=== PATIENT | female | born 1940 | race Caucasian/White ===

== ENCOUNTER 2018-11-19 06:20 | Inpatient (IN) | payer MEDICARE, OTHER ==
[2018-11-19] MEDS ORDERED: Sodium Chloride 0.9% 10 ML Syringe FLUSH PRN (06:30)
[2018-11-19] MEDS ORDERED: Albuterol/Ipratropium 3.0-0.5 MG/3 ML Neb Soln NEB ONE (06:33)
[2018-11-19] MEDS ORDERED: methylPREDNISolone Sodium Succinate 125 MG/2 ML SDV IV ONE (06:33)
--- NOTE | 2018-11-19 06:53 | EDM.PDOC ---
<ShebaAugustine W - Last Filed: 11/19/18 07:01> ED HPI GENERAL MEDICAL PROBLEM - General Chief Complaint: Respiratory Problem Stated Complaint: Shortness of breath Time Seen by Provider: 11/19/18 06:25 Source of Information: Reports: Patient History Limitations: Reports: No Limitations - History of Present Illness INITIAL COMMENTS - FREE TEXT/NARRATIVE: Pt. presents to ER with complaints of trouble breathing. Pt. states that she has been ill for several days with cough, wheezing, and diarrhea. She states that she has been occasionally chilled but has not been checking her temp. Pt. states that she has an underlying history of COPD. Pt. PCP is Dr. Ford. She states that she has never been hospitalized for COPD, in fact, she doesn't think that she has had a nebulizer treatment until today. She currently takes Incruse and albuterol for her COPD. She states that she perviously took Advair. She still smokes. Onset Date: 11/18/18 Location: Reports: Chest, Generalized Associated Symptoms: Reports: Shortness of Breath - Related Data Allergies Allergy/AdvReac Type Severity Reaction Status Date / Time rosuvastatin calcium AdvReac Muscle Verified 11/19/18 06:43 [From Crestor] Weakness Home Meds: Home Meds Albuterol [Ventolin HFA] 1 puff INH Q4H PRN 09/01/15 [History] Calcium Carbonate/Vitamin D3 [Calcium 600 + Vit D 200] 1 tab PO BID 09/01/15 [ History] Fluticasone/Salmeterol [Advair 250-50 Diskus] 1 puff INH DAILY 09/01/15 [History ] Ibuprofen 2 tab PO Q6HR PRN 09/01/15 [History] Multivitamin with Minerals [Multiple Vitamin] 1 tab PO DAILY 09/01/15 [History] Simvastatin 1 tab PO DAILY 09/01/15 [History] Theophylline [Theophylline Anhydrous] 100 mg PO BID 09/01/15 [History] Topiramate 50 mg PO DAILY 09/01/15 [History] Past Medical History HEENT History: Reports: None Cardiovascular History: Reports: High Cholesterol, Other (See Below) Other Cardiovascular History: proxysmal supraventricular tachycardia Respiratory History: Reports: COPD, Other (See Below) Other Respiratory History: Chronic airway obstruction Gastrointestinal History: Reports: Other (See Below) Other Gastrointestinal History: Diverticulitis. Heme positive stool Musculoskeletal History: Reports: Other (See Below) Other Musculoskeletal History: knee injury Neurological History: Reports: Other (See Below) Other Neuro History: Essential tremor Psychiatric History: Reports: Depression Endocrine/Metabolic History: Reports: Osteoporosis, Other (See Below) Other Endocrine/Metabolic History: Weight loss Hematologic History: Reports: None Immunologic History: Reports: None Oncologic (Cancer) History: Reports: None Dermatologic History: Reports: Other (See Below) Other Dermatologic History: Alopecia - Past Surgical History Musculoskeletal Surgical History: ED ROS GENERAL - Review of Systems Review Of Systems: See Below Constitutional: Reports: Chills, Fatigue HEENT: Reports: No Symptoms Respiratory: Reports: Shortness of Breath, Wheezing Cardiovascular: Reports: No Symptoms. Denies: Chest Pain, Edema, Palpitations Endocrine: Reports: No Symptoms GI/Abdominal: Reports: Diarrhea, Nausea : Reports: No Symptoms Musculoskeletal: Reports: No Symptoms Skin: Reports: Change in Color (cyanosis around lips) Neurological: Reports: No Symptoms Psychiatric: Reports: No Symptoms Hematologic/Lymphatic: Reports: No Symptoms Immunologic: Reports: No Symptoms ED EXAM, GENERAL - Physical Exam Exam: See Below Exam Limited By: No Limitations General Appearance: Alert, WD/WN, No Apparent Distress Eye Exam: Bilateral Eye: EOMI, Normal Fundi, Normal Inspection, PERRL Throat/Mouth: Normal Inspection, Normal Lips, Normal Teeth, Normal Gums, Normal Oropharynx, Normal Voice, No Airway Compromise Head: Atraumatic, Normocephalic Neck: Normal Inspection, Supple Respiratory/Chest: No Respiratory Distress, Chest Non-Tender, Decreased Breath Sounds, Wheezing Cardiovascular: Normal Peripheral Pulses, Regular Rate, Rhythm, No Edema, No Murmur Peripheral Pulses: 3+: Radial (R) GI/Abdominal: Normal Bowel Sounds, Soft, Non-Tender, No Organomegaly, No Distention (Female) Exam: Deferred Rectal (Female) Exam: Deferred Back Exam: Normal Inspection, Full Range of Motion Extremities: Normal Inspection, Normal Range of Motion, Non-Tender, No Pedal Edema, Normal Capillary Refill Neurological: Alert, Oriented, CN II-XII Intact, Normal Cognition, Normal Reflexes, No Motor/Sensory Deficits, Other (tremor noted.) Skin Exam: Warm, Dry, Intact Course - Vital Signs Last Recorded V/S: Last Vital Signs Temp 36.9 C 11/19/18 06:20 Pulse 110 H 11/19/18 07:27 Resp 20 11/19/18 08:00 BP 181/122 H 11/19/18 08:00 Pulse Ox 88 L 11/19/18 08:00 - Orders/Labs/Meds Orders: Active Orders 24 hr Category Date Time Status EKG Documentation Completion [RC] STAT Care 11/19/18 07:02 Active Oxygen Therapy, ED [RC] ASDIRECTED Care 11/19/18 06:20 Active RT Aerosol Therapy [RC] ASDIRECTED Care 11/19/18 06:33 Active Chest PE [Ang Chest] [CT] Stat Exams 11/19/18 07:40 Ordered CULTURE BLOOD [BC] Stat Lab 11/19/18 06:34 Ordered CULTURE BLOOD [BC] Stat Lab 11/19/18 06:34 Ordered Sodium Chloride 0.9% [Saline Flush] Med 11/19/18 06:30 Active 10 ml FLUSH ASDIRECTED PRN Blood Culture x2 Reflex Set [OM.PC] Stat Oth 11/19/18 06:34 Ordered Peripheral IV Insertion Adult [OM.PC] Routine Oth 11/19/18 06:31 Ordered Medication Orders Sodium Chloride (Saline Flush) 10 ml FLUSH ASDIRECTED PRN PRN Reason: Keep Vein Open Labs: Laboratory Tests 11/19/18 11/19/18 11/19/18 Range/Units 06:43 06:43 06:43 WBC 6.3 (4.0-10.0) x10^3/uL RBC 4.52 (4.00-5.50) x10^6/uL Hgb 14.1 (12.0-16.0) g/dL Hct 41.6 (33.0-47.0) % MCV 92.0 (78.0-93.0) fL MCH 31.2 (26.0-32.0) pg MCHC 33.9 (32.0-36.0) g/dL RDW Coeff of Vazquez 12.7 (10.0-15.0) % Plt Count 219 (130-400) x10^3/uL Neut % (Auto) 68.8 (50.0-80.0) % Lymph % (Auto) 19.2 L (25.0-50.0) % [place] % (Auto) 10.7 (2.0-11.0) % Eos % (Auto) 1.0 (0.0-4.0) % Baso % (Auto) 0.3 (0.2-1.2) % PT 10.4 (10.0-12.8) SEC INR 0.9 L (2.0-3.5) D-Dimer, Quantitative (<=0.58) mg/LFEU POC ABG pH (7.35-7.45) POC ABG pCO2 (35-45) mmHG POC ABG pO2 (80-105) mmHG POC ABG HCO3 (22-26) mmol/L POC ABG Total CO2 (23-27) mmol/L POC ABG O2 Sat (95-98) % POC ABG Base Excess (-2-3) mmol/L POC FiO2 Sodium (136-145) mmol/L Potassium (3.5-5.1) mmol/L Chloride (98-107) mmol/L Carbon Dioxide (21-32) mmol/L Anion Gap (10-20) mmol/L BUN (7-18) mg/dL Creatinine (0.55-1.02) mg/dL Est Cr Clr Drug Dosing mL/min Estimated GFR (MDRD) Glucose (74-106) mg/dL Lactic Acid 1.3 (0.4-2.0) mmol/L Calcium (8.5-10.1) mg/dL Corrected Calcium (8.5-10.1) mg/dL Phosphorus (2.6-4.7) mg/dL Magnesium (1.8-2.4) mg/dL Total Bilirubin (0.2-1.0) mg/dL AST (15-37) U/L ALT (14-59) U/L Alkaline Phosphatase (46-116) U/L Troponin I (<=0.056) ng/mL C-Reactive Protein (<=0.9) mg/dL NT-Pro-B Natriuret Pep (<=450) pg/mL Total Protein (6.4-8.2) g/dL Albumin (3.4-5.0) g/dL Globulin Albumin/Globulin Ratio 11/19/18 11/19/18 11/19/18 Range/Units 06:43 06:43 06:43 WBC (4.0-10.0) x10^3/uL RBC (4.00-5.50) x10^6/uL Hgb (12.0-16.0) g/dL Hct (33.0-47.0) % MCV (78.0-93.0) fL MCH (26.0-32.0) pg MCHC (32.0-36.0) g/dL RDW Coeff of Vazquez (10.0-15.0) % Plt Count (130-400) x10^3/uL Neut % (Auto) (50.0-80.0) % Lymph % (Auto) (25.0-50.0) % [place] % (Auto) (2.0-11.0) % Eos % (Auto) (0.0-4.0) % Baso % (Auto) (0.2-1.2) % PT (10.0-12.8) SEC INR (2.0-3.5) D-Dimer, Quantitative 1.04 H (<=0.58) mg/LFEU POC ABG pH (7.35-7.45) POC ABG pCO2 (35-45) mmHG POC ABG pO2 (80-105) mmHG POC ABG HCO3 (22-26) mmol/L POC ABG Total CO2 (23-27) mmol/L POC ABG O2 Sat (95-98) % POC ABG Base Excess (-2-3) mmol/L POC FiO2 Sodium 137 (136-145) mmol/L Potassium 4.5 (3.5-5.1) mmol/L Chloride 101 (98-107) mmol/L Carbon Dioxide 27 (21-32) mmol/L Anion Gap 13.5 (10-20) mmol/L BUN 12 (7-18) mg/dL Creatinine 1.0 (0.55-1.02) mg/dL Est Cr Clr Drug Dosing 36.11 mL/min Estimated GFR (MDRD) 54 Glucose 86 (74-106) mg/dL Lactic Acid (0.4-2.0) mmol/L Calcium 8.6 (8.5-10.1) mg/dL Corrected Calcium 9.24 (8.5-10.1) mg/dL Phosphorus 3.8 (2.6-4.7) mg/dL Magnesium 1.7 L (1.8-2.4) mg/dL Total Bilirubin 0.6 (0.2-1.0) mg/dL AST 34 (15-37) U/L ALT 31 (14-59) U/L Alkaline Phosphatase 103 (46-116) U/L Troponin I 0.054 (<=0.056) ng/mL C-Reactive Protein 0.6 (<=0.9) mg/dL NT-Pro-B Natriuret Pep 6356 H (<=450) pg/mL Total Protein 6.8 (6.4-8.2) g/dL Albumin 3.2 L (3.4-5.0) g/dL Globulin 3.6 Albumin/Globulin Ratio 0.89 11/19/18 Range/Units 07:27 WBC (4.0-10.0) x10^3/uL RBC (4.00-5.50) x10^6/uL Hgb (12.0-16.0) g/dL Hct (33.0-47.0) % MCV (78.0-93.0) fL MCH (26.0-32.0) pg MCHC (32.0-36.0) g/dL RDW Coeff of Vazquez (10.0-15.0) % Plt Count (130-400) x10^3/uL Neut % (Auto) (50.0-80.0) % Lymph % (Auto) (25.0-50.0) % [place] % (Auto) (2.0-11.0) % Eos % (Auto) (0.0-4.0) % Baso % (Auto) (0.2-1.2) % PT (10.0-12.8) SEC INR (2.0-3.5) D-Dimer, Quantitative (<=0.58) mg/LFEU POC ABG pH 7.425 (7.35-7.45) POC ABG pCO2 39 (35-45) mmHG POC ABG pO2 69 L (80-105) mmHG POC ABG HCO3 26 (22-26) mmol/L POC ABG Total CO2 27 (23-27) mmol/L POC ABG O2 Sat 94 L (95-98) % POC ABG Base Excess 1 (-2-3) mmol/L POC FiO2 0.28 Sodium (136-145) mmol/L Potassium (3.5-5.1) mmol/L Chloride (98-107) mmol/L Carbon Dioxide (21-32) mmol/L Anion Gap (10-20) mmol/L BUN (7-18) mg/dL Creatinine (0.55-1.02) mg/dL Est Cr Clr Drug Dosing mL/min Estimated GFR (MDRD) Glucose (74-106) mg/dL Lactic Acid (0.4-2.0) mmol/L Calcium (8.5-10.1) mg/dL Corrected Calcium (8.5-10.1) mg/dL Phosphorus (2.6-4.7) mg/dL Magnesium (1.8-2.4) mg/dL Total Bilirubin (0.2-1.0) mg/dL AST (15-37) U/L ALT (14-59) U/L Alkaline Phosphatase (46-116) U/L Troponin I (<=0.056) ng/mL C-Reactive Protein (<=0.9) mg/dL NT-Pro-B Natriuret Pep (<=450) pg/mL Total Protein (6.4-8.2) g/dL Albumin (3.4-5.0) g/dL Globulin Albumin/Globulin Ratio Meds: Medications Generic Name Dose Route Start Last Admin Trade Name Freq PRN Reason Stop Dose Admin Sodium Chloride 10 ml 11/19/18 06:30 Saline Flush FLUSH ASDIRECTED PRN Keep Vein Open Discontinued Medications Generic Name Dose Route Start Last Admin Trade Name Freq PRN Reason Stop Dose Admin Albuterol/Ipratropium 3 ml 11/19/18 06:33 11/19/18 06:25 Duoneb 3.0-0.5 Mg/3 Ml NEB 11/19/18 06:34 3 ml ONETIME ONE Administration Iopamidol 100 ml 11/19/18 07:53 11/19/18 08:08 Isovue-300 (61%) IVPUSH 11/19/18 07:54 100 ml ONETIME ONE Administration Methylprednisolone Sodium Succinate 125 mg 11/19/18 06:33 11/19/18 06:56 Solu-Medrol IV 11/19/18 06:34 125 mg ONETIME ONE Administration Departure - Departure Disposition: Admitted As Inpatient 68 Clinical Impression: COPD with exacerbation - Discharge Information Forms: ED Department Discharge - My Orders Last 24 Hours: My Active Orders 11/19/18 07:40 Chest PE [Ang Chest] [CT] Stat - Assessment/Plan Last 24 Hours: My Active Orders 11/19/18 07:40 Chest PE [Ang Chest] [CT] Stat <Murphy Lopez M - Last Filed: 11/19/18 09:12> Course - Re-Assessments/Exams Free Text/Narrative Re-Assessment/Exam: 11/19/18 08:46 D-Dimer elevated. CTA chest ordered due to hypoxia, SOB. Negative for PE. No pneumonia. Departure - Departure Time of Disposition: 09:11 Condition: Fair ED Communication - ED Communication Date/Time Date: 11/19/18 Time Called: 08:45 - Discussed Case With (1) Discussed Case With (1): Admitting Provider (Reviewed case with Dr. Ford, patient's primary provider. She will admit to inpatient.) - Problem List Review Problem List Initiated/Reviewed/Updated: Yes - Assessment/Plan Assessment:: COPD exacerbation Plan: Patient to be admitted inpatient to Dr. Ford's services. Patient has been stable during our care in the ER.
[2018-11-19 07:17] LABS: ANION GAP 13.5 mmol/L (10-20)
--- NOTE | 2018-11-19 07:40 | CR ---
[id number] RAD/RAD Chest PA or AP 1V EXAM: SINGLE VIEW CHEST. INDICATION: SHORTNESS OF BREATH COMPARISON: CORRELATION IS MADE WITH THE CAT SCAN OF APRIL 03, 2018. FINDINGS: The lungs are clear but hyperaerated. The cardiomediastinal contour is prominent but stable. IMPRESSION: AIRWAY DISEASE. NO PNEUMONIA OR EDEMA. Jose Mendez MD 11/19/18 0739 Thank you for allowing us to participate in the care of your patient.
[2018-11-19] MEDS ORDERED: Iopamidol 612 MG/ML 100 ML Bottle IVPUSH ONE (07:53)
--- NOTE | 2018-11-19 08:40 | CT ---
[id number] CT/CTA Chest Exam: CTA Chest Clinical Data: ELEVATED D-DIMER. HYPOXIA COMPARISON: CORRELATION IS MADE WITH THE CAT SCAN OF APRIL 03, 2018. FINDINGS: There are no pulmonary emboli. There is evidence of centrilobular emphysema. There is bronchiectasis. There is no infiltrate or effusion. There are atheromatous changes. There is no mediastinal mass or adenopathy IMPRESSION: NO PULMONARY EMBOLI. Jose Mendez MD 11/19/18 0838 Thank you for allowing us to participate in the care of your patient.
[2018-11-19] MEDS ORDERED: Acetaminophen 325 MG Tab PO PRN (08:55)
[2018-11-19] MEDS: Lisinopril 5 MG Tab PO SCH (10:17)
[2018-11-19] MEDS: Albuterol/Ipratropium 3.0-0.5 MG/3 ML Neb Soln NEB SCH ×3 (10:17→19:32)
[2018-11-19] MEDS: Magnesium Oxide 400 MG Tab PO SCH (10:17)
[2018-11-19] MEDS: Azithromycin 250 MG Tab PO SCH (10:17)
[2018-11-19] MEDS ORDERED: Non-Formulary Medication 1 Each (Albuterol 1 PUFF) INH PRN (11:34)
[2018-11-19] MEDS ORDERED: guaiFENesin 600 MG Tab.ER PO PRN (11:36)
[2018-11-19] MEDS ORDERED: Albuterol 0.083% 2.5 MG/3 ML Neb Soln NEB PRN (11:48)
[2018-11-19] MEDS: Primidone 50 MG Tab PO SCH ×2 (12:26→19:33)
[2018-11-19] MEDS: Fluticasone-Salmeterol 113-14 MCG Powder Inhalant INH SCH ×2 (12:27→19:32)
[2018-11-19] MEDS: Megestrol 40 MG Tab PO SCH ×2 (12:27→19:33)
[2018-11-19] MEDS ORDERED: Sodium Chloride 0.9% 1,000 ML IV ONE (13:30)
[2018-11-19] MEDS: methylPREDNISolone Sodium Succinate 125 MG/2 ML SDV IVPUSH SCH ×2 (14:23→21:22)
--- NOTE | 2018-11-19 17:39 | HP ---
CHIEF COMPLAINT: Shortness of breath. HISTORY OF PRESENT ILLNESS: The patient is seen today. The patient is a 78- year-old female with known history of COPD, who presents into the emergency room, being quite short of breath. She has been having a cough for the past week. It was productive. No fever or chills. No chest pain, but she knows that she was having blueness around her lips as well as her fingers and she came into the emergency room. She was initially seen by RAZ Harris and then Murphy Lopez. She was given a DuoNeb treatment, given oxygen. Her sats initially were down to about 79, it was up to 85 with just 3 L, but then did improve to the low 90s after neb treatment. The patient has been feeling a little bit nauseated for the past few days. She has been only using her Advair once a day. She has been doing fairly well in the clinic with her COPD. To note, the patient had been on a fishing trip in October. She does see Neurology for her tremor and recently she had been tried on gabapentin, but that did not seem to make a difference, so she had stopped it. The patient is still smoking half a pack of cigarettes a day and does not desire any methods to help her stop smoking. Her accompanies her, offers no other concerns. To note, the patient does have a noted lung nodule by CT and had been seen by Pulmonology in [place]. She was to have been seen for recheck by Pulmonology last winter, but the patient did not keep that appointment nor did she have formal pulmonary function tests done. It was noted in the emergency room that her blood pressure is somewhat high and she commented in the clinic that it had been somewhat high recently. She has not been on any medications for blood pressure. MEDICATIONS: The patient is currently on, 1. Megace 40 mg 1 pill 3 times a day. 2. Primidone 50 mg 2 pills 3 times a day (not currently on Neurontin). 3. Xanax 0.25 mg 1 pill twice a day as needed for anxiety. 4. Advair 250/50 one puff twice a day (had been doing stable on that dose). 5. Zocor 20 mg 1 pill daily. 6. Incruse Ellipta 1 puff daily. 7. Albuterol 2 puffs every 4 hours as needed for cough (the patient has been out of this medication recently). 8. Multivitamin 1 pill daily. 9. Calcium with vitamin D 600/200 one pill twice a day. 10.Advil 400 mg every 6 hours as needed for pain. ALLERGIES: The patient is allergic to Crestor. PAST MEDICAL HISTORY: The patient has COPD. She has been noted to have a peak flow baseline at 250 noted in 2012. She had been on theophylline and had been tapered off her system because of problems with worsening tremor. She has hypercholesterolemia. She has had an essential tremor. She is seen by Neurology, has been on Topamax and Zoloft, Xanax actually seemed to help with her tremor in 06/2018, and she is on Mysoline for this. The patient is noted to have multiple lung nodules, first found on 11/28/2017 by low-dose CT in the middle lobe. The patient had a suspicious nodule noted and she needed to have a CT scan or PET scan. She need a 3-month followup CT. She also had severe emphysema present on 04/05/2018. CT showed scarring, previous 4 mm nodule density within bronchus, no longer seen. She is supposed to have a 12 month followup. The patient has had anxiety, started on Xanax in 06/2018. She has had chronic diarrhea in the past from medication related. She has had diverticulosis noted of her large intestine in 2000 by flexible sigmoidoscopy. She has had elevated liver function tests in the past. She had a hyperplastic colon polyp noted on 09/10/2015 and her next scope was to be done in 2 years. The patient has had a close maxillary fracture from a fall from 04/08/2018. She had alopecia. The patient has a history of PSVT. She had AV node ablation on 08/17/2011. She had a Cardiolite stress test in 04/2007, which was negative. She has had nicotine dependence. She is noted to have osteoporosis since 09/18/2016, previous osteopenia noted since 2010. VACCINATION: She has had pneumococcal 13 on 08/18/2015. She has had pneumococcal 23 on 05/03/2007. Tdap on 03/20/2011. Zostavax 06/14/2012. FAMILY MEDICAL HISTORY: Mother has had a stroke, had hearing loss. Father had a heart attack, alcohol abuse. She has a daughter who has had cerebral palsy. SOCIAL HISTORY: The patient is . She smokes half pack a day of cigarettes. 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 She drinks. She enjoys walking as well as fishing. REVIEW OF SYSTEMS: [place] a little bit nauseated. No problems with headache. No double vision. Does have a tremor at rest of her head as well as hands. Does have a productive cough now. No chest pain. No rapid heartbeat noted. Somewhat nauseated. She has not been constipated. No problems with burning with urination. No swelling of her extremities. No change in the skin rashes. PHYSICAL EXAMINATION: General: The patient was alert. HEENT: She was noted to have cyanosis of her mouth and her fingers. She did have a tremor at rest of her head. Her pharynx had moist mucous membranes. Heart: Regular rate and rhythm. Lungs: Had tight inspiratory wheezes bilaterally. Breasts: Exam deferred. Abdomen: Soft and nontender. Extremities: Lower extremities, no edema. Neurologic: She moves all extremities symmetric. No tremors of her hands noted, but does have her head. Psychiatric: She is alert and oriented x3. She does appear slightly anxious. Vital Signs: On admission showed that her weight was 49.89 kg. Her temperature 36.6, pulse 118, blood pressure is 166/99, respiratory rate is 20, saturations are 98% on 2 L. DIAGNOSTIC DATA: The patient had an EKG done in the emergency department, which showed sinus tachycardia. Chest x-ray was done which showed cardiomegaly with no acute infiltrates, had COPD changes. She had a CT scan done of her chest for positive D-dimer, was negative for PE, showed evidence of COPD. No infiltrates noted. LABORATORY DATA: Her lab work showed her white blood cell count 6.3, hemoglobin 14.1, platelets 219 with 68 segs, 19 lymphocytes. Her sodium was 137, potassium 4.5, creatinine 1.0, BUN 12, GFR 54. Anion gap 13.5, lactic acid 1.3, calcium 8.6, magnesium 1.7, phosphorus 38. Blood gases were done on 1 L, showed ABGs, pH 7.42, pCO2 39, PO2 67, bicarb 26, sats 94. ProBNP was elevated at 6356. The patient did receive a shot of Solu-Medrol 125 mg IV. IMPRESSION: 1. Exacerbation of chronic obstructive pulmonary disease. 2. Hypertension. 3. Nausea, unclear etiology. 4. Hypoxemia. 5. Elevated proBNP, unclear if related to tachycardia, doubt heart failure etiology. 6. Hypomagnesium, mild. 7. Chronic anxiety disorder. 8. Benign essential tremor. 9. History of lung nodules. PLAN: The patient will be admitted to acute care. We will continue oxygen for keeping her sats above 90%. We will place her on scheduled DuoNeb at 4 times a day. We will increase her Advair to twice a day. We will give her IV Solu- Medrol. We will cover her with Zithromax 500 mg daily in case she may have a bronchitis going on. We will submit sputum culture. She already had blood cultures done. The patient is placed on Lovenox for DVT prophylaxis. We will supplement her magnesium for her low magnesium levels. We will start her on lisinopril for blood pressure treatment. The patient elects to be code level 1 status and does want to be resuscitated and wants to be intubated if the need should arise. We will place her on a heart monitor because she has been slightly tachycardic. Hopefully anticipate the patient should be able to return home in a day or 2. She will continue with her p.r.n. Xanax for anxiety disorder. The patient was offered nicotine replacement therapy for her smoking cessation. She declined that right now. She is encouraged to stop smoking. GM11/19/2018 11:51:35 MODL: 11/19/2018 17:29:58 /[id number]
[2018-11-19] MEDS: Calcium Carbonate/Vitamin D3 1250 MG-200 Unit Tab PO SCH (19:31)
[2018-11-19] MEDS: Enoxaparin 30 MG/0.3 ML Syringe SUBCUT SCH (19:32)
[2018-11-19] MEDS: ALPRAZolam 0.25 MG Tab PO PRN (19:44)
[2018-11-20] MEDS: methylPREDNISolone Sodium Succinate 125 MG/2 ML SDV IVPUSH SCH ×4 (06:07→21:52)
[2018-11-20] MEDS: Albuterol/Ipratropium 3.0-0.5 MG/3 ML Neb Soln NEB SCH ×4 (06:09→20:09)
[2018-11-20 06:47] LABS: CHLORIDE,CL 105 mmol/L (98-107); SODIUM,NA 139 mmol/L (136-145)
[2018-11-20 06:51] LABS: ANION GAP 11.7 mmol/L (10-20)
[2018-11-20] MEDS: Calcium Carbonate/Vitamin D3 1250 MG-200 Unit Tab PO SCH ×2 (08:08→20:11)
[2018-11-20] MEDS: Megestrol 40 MG Tab PO SCH ×3 (08:08→20:11)
[2018-11-20] MEDS: Lisinopril 5 MG Tab PO SCH (08:08)
[2018-11-20] MEDS: Azithromycin 250 MG Tab PO SCH (08:08)
[2018-11-20] MEDS: Primidone 50 MG Tab PO SCH ×3 (08:08→20:11)
[2018-11-20] MEDS: Simvastatin 20 MG Tab PO SCH (08:08)
[2018-11-20] MEDS: Magnesium Oxide 400 MG Tab PO SCH ×2 (08:11→20:11)
[2018-11-20] MEDS: Multivitamins with Iron/Calcium/Folic Acid/Minerals Tab PO SCH (08:11)
[2018-11-20] MEDS: Fluticasone-Salmeterol 113-14 MCG Powder Inhalant INH SCH ×2 (08:11→20:12)
--- NOTE | 2018-11-20 09:41 | PN ---
Progress Note for ANA ESPARZA Date: 11/20/2018 Room #: VM.210 SUBJECTIVE: This is the patient's second hospital day of being admitted with exacerbation of COPD with hypoxemia and bronchitis. She is feeling better this morning. It was noted that her blood pressure was fairly high in the ER, so we also did start her on lisinopril. Her telemetry has shown rates that have been around the 120s to down to 110s. She did receive a liter of IV fluids, which actually did help, so her pulse down. She has still required oxygen. She is surprised that she is not able to go home today. OBJECTIVE: Vital Signs: Her temperature is 36.8, pulse is down to 101, blood pressure is 140/88, respiratory rate is 20, and saturations are 93% on 1 L. General: She is slightly flushed of her face. Lungs: She does have some diminished breath sounds on bases bilaterally with questionably faint wheeze. Heart: Slightly tachy. Abdomen: Soft. LABORATORY DATA: Her lab work today shows her sodium is 139, potassium 4.7, creatinine 0.9, GFR greater than 60. Her magnesium is still low at 1.7. Her lactic acid had been normal on admit and when it was repeated 4 hours later came back normal at 1.0. Her CRP has stayed the same at 0.6 from admission. Albumin is slightly low at 2.9. IMPRESSION: 1. Exacerbation of chronic obstructive pulmonary disease. 2. Hypoxemia related to chronic obstructive pulmonary disease. 3. Tachycardia related to sickness. 4. Hypertension. 5. Benign essential tremor. 6. Chronic anxiety disorder. PLAN: We will continue the patient on acute care to receive IV steroid. She is on Zithromax. We did place her on lisinopril for blood pressure control. We are still awaiting sputum sample. Tomorrow, we will repeat chest x-ray; hopefully, we will be able to wean her off her oxygen and be able to send her home. We will continue her on the same amount of IV steroids right now. We will do peak flow meter testing on the patient as well. GM11/20/2018 08:27:18 MODL: 11/20/2018 09:10:07 /[id number]
[2018-11-20] MEDS: Enoxaparin 30 MG/0.3 ML Syringe SUBCUT SCH (20:09)
[2018-11-21] MEDS: ALPRAZolam 0.25 MG Tab PO PRN (00:48)
[2018-11-21] MEDS: Albuterol/Ipratropium 3.0-0.5 MG/3 ML Neb Soln NEB SCH (06:13)
[2018-11-21] MEDS: methylPREDNISolone Sodium Succinate 125 MG/2 ML SDV IVPUSH SCH (06:13)
[2018-11-21 06:50] LABS: ANION GAP 11.8 mmol/L (10-20)
[2018-11-21] MEDS: Lisinopril 5 MG Tab PO SCH (07:46)
[2018-11-21] MEDS: Primidone 50 MG Tab PO SCH ×2 (07:46→11:25)
[2018-11-21] MEDS: Simvastatin 20 MG Tab PO SCH (07:46)
[2018-11-21] MEDS: Multivitamins with Iron/Calcium/Folic Acid/Minerals Tab PO SCH (07:46)
[2018-11-21] MEDS: Megestrol 40 MG Tab PO SCH ×2 (07:47→11:25)
[2018-11-21] MEDS: Calcium Carbonate/Vitamin D3 1250 MG-200 Unit Tab PO SCH (07:47)
[2018-11-21] MEDS: Magnesium Oxide 400 MG Tab PO SCH (07:47)
[2018-11-21] MEDS: Azithromycin 250 MG Tab PO SCH (07:47)
[2018-11-21] MEDS: Fluticasone-Salmeterol 113-14 MCG Powder Inhalant INH SCH (07:48)
--- NOTE | 2018-11-21 08:33 | CR ---
[id number] RAD/RAD Chest PA And Lateral EXAM: RAD Chest PA And Lateral CLINICAL DATA: EXACERBATION OF COPD COMPARISON: CORRELATION IS MADE WITH THE EXAM OF NOVEMBER 19, 2018. FINDINGS: The lungs are clear but hyperaerated. The cardiomediastinal contour is enlarged and stable. The regional bones and soft tissues are unremarkable. IMPRESSION: AIRWAY DISEASE. NO PNEUMONIA. Jose Mendez MD 11/21/18 0832 Thank you for allowing us to participate in the care of your patient.
[2018-11-21] MEDS ORDERED: Nicotine 14 MG/24 Hr Patch TRDERM SCH (09:15)
[2018-11-21 10:39] VITALS: BP 132/81
--- NOTE | 2018-11-21 10:49 | PN ---
Progress Note for ANA ESPARZA Date: 11/21/2018 Room #: VM.210 SUBJECTIVE: The patient is feeling better today. She is here to be discharged home. She does talk about wanting to start a nicotine patch to see if this can help her with smoking cessation. OBJECTIVE: Vital Signs: Show that her temperature is 36.8, her blood pressure is 143/92, pulse is 111, respiratory rate is 18, sats are 94% on 1 L, and we are trying to wean her now off oxygen completely. General: Objectively, she is slightly flushed in appearance face wood. Heart: Regular rate and rhythm. Lungs: Diminished breath sounds. Abdomen: Soft. LABORATORY DATA: Shows her white blood cell count is 8.5, hemoglobin 12.8, platelets 226, 81 segs, and 11 lymphocytes. Sodium 140, potassium 4.8, creatinine 1.0, GFR 54. Her magnesium is up to 1.9. IMPRESSION: 1. Exacerbation of chronic obstructive pulmonary disease. 2. Bronchitis. 3. Hypomagnesemia. 4. Hypertension. 5. Nicotine dependence, going through withdrawal. 6. Benign essential tremor. PLAN: We will switch her from albuterol nebs to a Combivent Respimat or Seebri or Incruse, depending on what is covered.. We will start a nicotine replacement patch on the patient. We will see how she is doing without oxygen. If she maintains over 90% after an hour, then will be able to send her home, and did ask that she get her first prescriptions here locally and then consider switching to her mail-order pharmacy once we know that she needs to continue those medications. GM11/21/2018 09:11:28 MODL: 11/21/2018 10:42:39 /[id number] HASEEB
[2018-11-21] MEDS ORDERED: GLYCOPYRROLATE IH SCH (11:15)
--- NOTE | 2018-11-21 17:40 | HP ---
ADDENDUM: GM11/21/2018 15:18:22 MODL: 11/21/2018 17:33:33 /[id number] MTDD
[2018-11-22] MEDS ORDERED: predniSONE 20 MG Tab PO SCH (08:00)
--- NOTE | 2018-11-22 08:31 | DISCH ---
PRIMARY DIAGNOSES: 1. Exacerbation of chronic obstructive pulmonary disease. 2. Hypoxemia related to chronic obstructive pulmonary disease exacerbation. 3. Acute bronchitis. 4. Hypertension, not controlled. 5. Hypomagnesemia. 6. Nicotine addiction. 7. Benign essential tremor. 8. Chronic anxiety disorder. SUMMARY OF HISTORY AND PHYSICAL: The patient is a 78-year-old female who presented to the emergency room, being acutely short of breath, having a cough past few days, was noted to become more cyanotic, was seen in the emergency room. Initially, her O2 sats were 79%, placed on oxygen, given a DuoNeb, she went up to 85%. To note the patient does have a previous history of lung nodules that have been stable. She had only been using her Advair inhaler once a day. She does continue to smoke at home. When seen in the emergency room, she was given a DuoNeb treatment, which did help her quite a bit. Her chest x- ray was done, which showed cardiomegaly with no infiltrates. She had COPD changes. She had a chest CT done for positive D-dimer, was negative for PE. Her laboratory data showed a white blood cell count 6.3, hemoglobin 14.4, segs 68. Sodium 137, potassium 4.5, creatinine 1.0, BUN 12, GFR 54, lactic acid 1.3, magnesium 1.7. Blood gases done on 1 L showed ABGs; pH 7.42, pCO2 of 39, pO2 of 69, bicarb 26, sats 94%. ProBNP 6356. SUMMARY OF HOSPITAL COURSE: The patient was placed on acute care. She was given IV Solu-Medrol, placed on scheduled DuoNeb. She was increased on her Advair inhaler up to b.i.d. She was started on lisinopril for blood pressure control. The patient's oxygen requirements did diminish. Her lactic acid was still normal. The patient was placed on Lovenox for DVT prophylaxis. She was placed on oral magnesium for supplementation. The patient was initially offered nicotine replacement, she declined it. CRP had been done and it stayed the same at 0.6 from admission to the next morning. The patient was not given IV fluids. Her repeat chest x-ray had stayed stable with no evidence of infiltrate. She still was requiring oxygen, so she was continued on IV steroids. By 11/21/2018, she was feeling much better; white blood cell count was 8.5, hemoglobin 12.8, sodium was 140, potassium 4.8, creatinine 1.0, GFR 54, glucose 97, magnesium 1.9. The patient was started on nicotine replacement patch. It was discovered that the patient had been prescribed Incruse in the past at home and has not been taking it and it was felt that at the time of discharge, she was given Seebri as 1 inhaled dose while in the hospital and then she will be resumed on her Incruse at home to be used daily. MEDICATIONS: Her medications at discharge will be multivitamin 1 pill daily; calcium carbonate with vitamin D 1 pill b.i.d.; Advair 250/50 one puff b.i.d.; simvastatin 20 mg 1 pill daily; albuterol MDI 2 puffs q.4 hours p.r.n.; ibuprofen 200 mg 2 tablets every 6 hours p.r.n.; Mysoline 50 mg 2 pills 3 times a day; Megace 40 mg 1 pill 3 times a day; alprazolam 0.25 mg 1 pill twice a day as needed; Zithromax 500 mg for 1 additional dose tomorrow; lisinopril 5 mg 1 pill daily; magnesium oxide 400 mg 1 pill twice a day; nicotine 14 mg patch applied daily; prednisone 20 mg to take 2 pills daily for 3 days and 1 pill daily for 3 days and half a pill daily for 3 days, then stop; and the Incruse inhaler 1 puff daily. Incruse one puff daily The patient is to return to see me in a week's time for followup in the clinic, at that time, she will need to have recheck magnesium levels, a BMP level, and should also have a proBNP level done. The patient was not advised to stay off the cigarettes. The patient is full level code at the time of discharge. GM11/21/2018 15:16:25 MODL: 11/22/2018 04:03:34 /[id number] HASEEB
== END 2018-11-21 13:00 | disposition home or self-care (01) | DRG 192 ==
LOC: VM.ED 06:20 → VM.MS 08:52
PROVIDERS: ADMIT Family Medicine; ATTEND Family Medicine
DX: J44.0 Chronic obstructive pulmonary disease with (acute) lower respiratory infection (principal); J20.9 Acute bronchitis, unspecified; J44.1 Chronic obstructive pulmonary disease with (acute) exacerbation; R09.02 Hypoxemia; Z66 Do not resuscitate; I10 Essential (primary) hypertension; E83.42 Hypomagnesemia; R06.2 Wheezing; F41.9 Anxiety disorder, unspecified; F17.210 Nicotine dependence, cigarettes, uncomplicated; R05 Cough; R79.89 Other specified abnormal findings of blood chemistry; R06.02 Shortness of breath; R19.7 Diarrhea, unspecified; Z88.8 Allergy status to other drugs, medicaments and biological substances; Z79.899 Other long term (current) drug therapy; E78.00 Pure hypercholesterolemia, unspecified; I47.1 Supraventricular tachycardia; G25.0 Essential tremor; F32.9 Major depressive disorder, single episode, unspecified; M81.0 Age-related osteoporosis without current pathological fracture; L65.9 Nonscarring hair loss, unspecified; R11.0 Nausea; R23.0 Cyanosis
CPT/HCPCS: 36415; 36600; 71045; 71046; 71275; 80048; 80053; 82803; 83605; 83735; 83880; 84100; 84484; 85025; 85379; 85610; 86140; 87040; 87070; 87205; 93005; 94640; 96374; 97161-GP; 97530-GP; 99284-GF; 99285-25; A9270-GY; J1650; J2930; J7030; J7620-GY; Q9967

== ENCOUNTER 2019-03-04 09:38 | Emergency (ER) | payer MEDICARE, OTHER ==
--- NOTE | 2019-03-04 10:23 | EDM.PDOC ---
ED HPI GENERAL MEDICAL PROBLEM - General Chief Complaint: Respiratory Problem Time Seen by Provider: 03/04/19 10:05 Source of Information: Reports: Patient, RN History Limitations: Reports: No Limitations - History of Present Illness INITIAL COMMENTS - FREE TEXT/NARRATIVE: Anabella is 78 y/o female who was sent to the ER for low oxygen levels and an irregular heart beat. She was seeing Dr Ford and then sent here for questionable A Fib. She denies any chest discomfort. She only reports a dry hacky cough that she has had now for about a week. She had spoke with an RN in [place] yesterday and was taken off Lisinopril as a possible culprit for the cough. Her Lasix was also increased. She denies any wheezing or SOB. She is not on oxygen at home, but arrives to the ER with an oxygen saturation of 85%. She overall reports feeling pretty good. - Related Data Allergies Allergy/AdvReac Type Severity Reaction Status Date / Time rosuvastatin calcium AdvReac Muscle Verified 03/04/19 09:53 [From Yohana] Weakness Home Meds: Home Meds Calcium Carbonate/Vitamin D3 [Calcium 600 + Vit D 200] 1 tab PO BID 09/01/15 [ History] Ibuprofen 2 tab PO Q6HR PRN 09/01/15 [History] Multivitamin with Minerals [Multiple Vitamin] 1 tab PO DAILY 09/01/15 [History] Simvastatin 1 tab PO DAILY 09/01/15 [History] ALPRAZolam [Xanax] 0.25 mg PO BID PRN 11/19/18 [History] Megestrol [Megace] 40 mg PO TID 11/19/18 [History] Primidone [Mysoline] 2 tab PO TID 11/19/18 [History] Fluticasone/Salmeterol [Fluticasone-Salmeterol 113-14 MCG Powder Inh] 1 puff INH BID #1 inhaler 11/21/18 [Rx] Lisinopril [Prinivil] 5 mg PO DAILY #30 tablet 11/21/18 [Rx] Magnesium Oxide 400 mg PO BID #60 tablet 11/21/18 [Rx] Acetaminophen [Tylenol Extra Strength] 500 mg PO Q4HR PRN 02/19/19 [History] Dextran 70/Hypromellose [Artificial Tears] 1 drop OP ASDIRECTED PRN 02/19/19 [ History] Metoprolol Succinate [Toprol Xl] 37.5 mg PO DAILY 02/19/19 [History] Albuterol/Ipratropium [DuoNeb 3.0-0.5 MG/3 ML] 3 ml .XX Q4H #1 box 03/04/19 [Rx] Azithromycin 250 mg PO DAILY 5 Days #6 tablet NS 03/04/19 [Rx] Past Medical History HEENT History: Reports: Cataract Cardiovascular History: Reports: Heart Failure, High Cholesterol, Hypertension, [place], Other (See Below) Other Cardiovascular History: proxysmal supraventricular tachycardia. valvular heart disease Respiratory History: Reports: COPD, Other (See Below) Other Respiratory History: Chronic airway obstruction. multiple lung nodules Gastrointestinal History: Reports: Other (See Below) Other Gastrointestinal History: Diverticulitis. Heme positive stool Musculoskeletal History: Reports: Osteoporosis, Other (See Below) Other Musculoskeletal History: knee injury Neurological History: Reports: Other (See Below) Other Neuro History: Essential tremor Psychiatric History: Reports: Anxiety, Depression Endocrine/Metabolic History: Reports: Osteoporosis, Other (See Below) Other Endocrine/Metabolic History: Weight loss Hematologic History: Reports: None Immunologic History: Reports: None Oncologic (Cancer) History: Reports: None Dermatologic History: Reports: Other (See Below) Other Dermatologic History: Alopecia - Past Surgical History Head Surgeries/Procedures: Reports: None GI Surgical History: Reports: Hernia, Inguinal Social & Family History - Tobacco Use Smoking Status *Q: Former Smoker Used Tobacco, but Quit: Yes Month/Year Tobacco Last Used: 12/04 - Caffeine Use Caffeine Use: Reports: Coffee ED ROS GENERAL - Review of Systems Review Of Systems: See Below Constitutional: Reports: No Symptoms HEENT: Reports: No Symptoms Respiratory: Reports: Cough. Denies: Shortness of Breath, Wheezing Cardiovascular: Reports: No Symptoms Endocrine: Reports: No Symptoms GI/Abdominal: Reports: No Symptoms : Reports: No Symptoms Musculoskeletal: Reports: No Symptoms Skin: Reports: No Symptoms Neurological: Reports: No Symptoms Psychiatric: Reports: No Symptoms Hematologic/Lymphatic: Reports: No Symptoms Immunologic: Reports: No Symptoms ED EXAM, GENERAL - Physical Exam Exam: See Below Exam Limited By: No Limitations General Appearance: Alert, WD/WN, No Apparent Distress (elderly female) Eye Exam: Bilateral Eye: PERRL Ears: Normal External Exam, Normal Canal, Hearing Grossly Normal, Normal TMs Nose: Normal Inspection, Normal Mucosa, No Blood Throat/Mouth: Normal Inspection, Normal Lips, Normal Gums, Normal Oropharynx, Normal Voice, Other (dentures present) Head: Atraumatic, Normocephalic Neck: Normal Inspection, Supple, Non-Tender Respiratory/Chest: No Respiratory Distress, No Accessory Muscle Use, Chest Non- Tender, Crackles (mild, scattered in the bases), Prolonged Expiration Cardiovascular: Normal Peripheral Pulses, Regular Rate, Rhythm, No Edema, No Gallop, No JVD, No Murmur, No Rub GI/Abdominal: Normal Bowel Sounds, Soft, Non-Tender, No Organomegaly, No Distention, No Abnormal Bruit, No Mass (Female) Exam: Deferred Rectal (Female) Exam: Deferred Back Exam: Normal Inspection Extremities: Normal Inspection, Non-Tender, No Pedal Edema, Normal Capillary Refill Neurological: Alert, Oriented, CN II-XII Intact, Normal Cognition, No Motor/ Sensory Deficits Psychiatric: Normal Affect, Normal Mood Skin Exam: Warm, Dry, Intact, Normal Color, No Rash Lymphatic: No Adenopathy EKG INTERPRETATION EKG Date: 03/04/19 Rhythm: NSR P-Wave: Present QRS: Normal ST-T: Normal Comparison: No Change Course - Vital Signs Text/Narrative:: 1005 The patient is seen by the USABILITY ARCHITECT. Labs, EKG, and CXR were ordered. She was requiring 2 liters of oxygen to keep her sats 90-91%. Duoneb ordered. 1045 Reports feeling better after the neb with less coughing. 1110 CXR reviewed and notes pulmonary infiltrate. Labs reviewed. Discussed admission to hospital with patient due to hypoxemia and will monitor on oxygen. Patient declines admission ans chooses outpatient therapy. Will treat with Azithromycin and Duonebs. 1115 Discharge instructions are given and patient sent home. Last Recorded V/S: Last Vital Signs Temp 37.1 C 03/04/19 09:38 Pulse 100 03/04/19 09:38 Resp 20 03/04/19 09:38 BP 125/72 03/04/19 09:38 Pulse Ox 92 L 03/04/19 10:35 - Orders/Labs/Meds Orders: Active Orders 24 hr Category Date Time Status EKG 12 Lead [EKG Documentation Completion] [RC] STAT Care 03/04/19 10:01 Active Oxygen Therapy, ED [RC] ASDIRECTED Care 03/04/19 10:00 Active RT Aerosol Therapy [RC] ASDIRECTED Care 03/04/19 10:29 Active Labs: Laboratory Tests 03/04/19 03/04/19 03/04/19 Range/Units 10:06 10:06 10:06 WBC 6.8 (4.0-10.0) x10^3/uL RBC 4.42 (4.00-5.50) x10^6/uL Hgb 13.2 (12.0-16.0) g/dL Hct 39.3 (33.0-47.0) % MCV 88.9 D (78.0-93.0) fL MCH 29.9 (26.0-32.0) pg MCHC 33.6 (32.0-36.0) g/dL RDW Coeff of Vazquez 17.1 H (10.0-15.0) % Plt Count 326 D (130-400) x10^3/uL Neut % (Auto) 69.3 (50.0-80.0) % Lymph % (Auto) 14.4 L (25.0-50.0) % Yell % (Auto) 12.5 H (2.0-11.0) % Eos % (Auto) 3.5 (0.0-4.0) % Baso % (Auto) 0.3 (0.2-1.2) % PT 10.1 (10.0-12.8) SEC INR 0.9 L (2.0-3.5) Sodium 136 (136-145) mmol/L Potassium 4.2 (3.5-5.1) mmol/L Chloride 98 (98-107) mmol/L Carbon Dioxide 28 (21-32) mmol/L Anion Gap 14.2 (10-20) mmol/L BUN 13 (7-18) mg/dL Creatinine 1.0 (0.55-1.02) mg/dL Est Cr Clr Drug Dosing TNP Estimated GFR (MDRD) 54 Glucose 89 (74-106) mg/dL Calcium 8.5 (8.5-10.1) mg/dL Corrected Calcium 9.46 (8.5-10.1) mg/dL Total Bilirubin 0.4 (0.2-1.0) mg/dL AST 27 (15-37) U/L ALT 29 (14-59) U/L Alkaline Phosphatase 139 H (46-116) U/L Troponin I < 0.017 (<=0.056) ng/mL Total Protein 7.2 (6.4-8.2) g/dL Albumin 2.8 L (3.4-5.0) g/dL Globulin 4.4 Albumin/Globulin Ratio 0.64 Meds: Medications Discontinued Medications Generic Name Dose Route Start Last Admin Trade Name Adam PRN Reason Stop Dose Admin Albuterol/Ipratropium 3 ml 03/04/19 10:28 03/04/19 10:33 Duoneb 3.0-0.5 Mg/3 Ml NEB 03/04/19 10:29 3 ml ONETIME ONE Administration Departure - Departure Time of Disposition: 11:15 Disposition: Home, Self-Care 01 Clinical Impression: COPD with exacerbation, Hypoxemia - Discharge Information *PRESCRIPTION DRUG MONITORING PROGRAM REVIEWED*: Not Applicable *COPY OF PRESCRIPTION DRUG MONITORING REPORT IN PATIENT DAX: Not Applicable Instructions: Chronic Obstructive Pulmonary Disease Referrals: Cleo Ford MD [Physician] - Forms: ED Department Discharge Additional Instructions: -Azithromycin Rx -Duonebs q 4 hours (Rx) 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 Discuss need for home oxygen with PCP. -Return to the ER if not improving or any concerns - My Orders Last 24 Hours: My Active Orders 03/04/19 10:00 Oxygen Therapy, ED [RC] ASDIRECTED 03/04/19 10:01 EKG 12 Lead [EKG Documentation Completion] [RC] STAT 03/04/19 10:29 RT Aerosol Therapy [RC] ASDIRECTED - Assessment/Plan Last 24 Hours: My Active Orders 03/04/19 10:00 Oxygen Therapy, ED [RC] ASDIRECTED 03/04/19 10:01 EKG 12 Lead [EKG Documentation Completion] [RC] STAT 03/04/19 10:29 RT Aerosol Therapy [RC] ASDIRECTED
[2019-03-04] MEDS: Albuterol/Ipratropium 3.0-0.5 MG/3 ML Neb Soln NEB ONE (10:33)
[2019-03-04 10:36] LABS: CHLORIDE,CL 98 mmol/L (98-107); SODIUM,NA 136 mmol/L (136-145)
[2019-03-04 10:37] LABS: ANION GAP 14.2 mmol/L (10-20)
--- NOTE | 2019-03-04 10:47 | CR ---
[id number] RAD/RAD Chest PA And Lateral EXAM: RAD Chest PA And Lateral INDICATION: COUGH. COMPARISON: November 21, 2018. DISCUSSION: Cardiomediastinal silhouette is stable in size and contour. No infiltrate, effusion, pneumothorax, or edema. Pulmonary hyperinflation. Retrocardiac pulmonary infiltrate best seen on the lateral. IMPRESSION: Retrocardiac pulmonary infiltrate best seen on lateral view. Follow-up imaging after appropriate therapy is recommended in 4-6 weeks to ensure resolution. Jay Curry DO 03/04/19 1044 Thank you for allowing us to participate in the care of your patient.
[2019-03-04 12:41] VITALS: BP 128/88; PULSE 98
== END 2019-03-04 12:04 | disposition home or self-care (01) ==
LOC: VM.ED 09:38
DX: R09.02 Hypoxemia (principal); J44.1 Chronic obstructive pulmonary disease with (acute) exacerbation; I11.0 Hypertensive heart disease with heart failure; I50.9 Heart failure, unspecified; I25.2 Old myocardial infarction; E78.00 Pure hypercholesterolemia, unspecified; F41.9 Anxiety disorder, unspecified; F32.9 Major depressive disorder, single episode, unspecified; Z87.891 Personal history of nicotine dependence; Z88.8 Allergy status to other drugs, medicaments and biological substances; Z79.899 Other long term (current) drug therapy
CPT/HCPCS: 36415; 71046; 80053; 84484; 85025; 85610; 93005; 93010; 94640; 99284-25; 99284-GF; J7620-GY

== ENCOUNTER 2019-05-11 19:25 | Inpatient (IN) | payer MEDICARE, OTHER ==
[2019-05-11] MEDS ORDERED: methylPREDNISolone Sodium Succinate 125 MG/2 ML SDV IVPUSH ONE (19:41)
[2019-05-11] MEDS ORDERED: Metoprolol Succinate 25 MG Tab.ER PO SCH (20:00)
[2019-05-11 20:20] LABS: CHLORIDE,CL 102 mmol/L (98-107); SODIUM,NA 139 mmol/L (136-145)
[2019-05-11 20:21] LABS: ANION GAP 18.7 mmol/L (10-20)
[2019-05-11] MEDS ORDERED: Furosemide 20 MG/2 ML VIAL IV ONE (20:23)
--- NOTE | 2019-05-11 21:28 | EDM.PDOC ---
ED HPI GENERAL MEDICAL PROBLEM - General Chief Complaint: Respiratory Problem Stated Complaint: SOB Time Seen by Provider: 05/11/19 19:25 Source of Information: Reports: Patient History Limitations: Reports: No Limitations - History of Present Illness INITIAL COMMENTS - FREE TEXT/NARRATIVE: Patient comes into the emergency department by EMS with complaints of shortness of breath. Patient states that she does have a long-standing history of respiratory issues requiring oxygenation at bedtime and rescue inhalers at times during the day. She has a diagnosis of CHF/fluid overload as well as COPD. Patient states that she woke up this morning and short of breath despite having oxygen on during the night. She ended up needing her nebulizer one time this morning and states that it did help with her symptoms. However shortly after lunch she began to become short of breath again she did not use any rescue inhalers or nebulizer treatments this evening but did need to call 911 due to the increased respiratory distress. EMS on scene state that the patient' s oxygen level was in the low 80s and was unable to speak more than 2 words without having to take a breath. They did give her a breathing treatment and oxygenation supplementation prior to arrival to the emergency department with the patient stating relief. Patient still was requiring oxygenation upon admission to the emergency department. Denies any recent illnesses or infections. She also denies having any recent fevers, nausea, vomiting, or chest pain. Onset: Gradual Quality: Reports: Other Severity: Moderate Improves with: Reports: None Worsens with: Reports: None Associated Symptoms: Reports: No Other Symptoms Treatments JAR CAPPER: Reports: EKG, Oxygen Other Treatments JAR CAPPER: Duo neb - Related Data Allergies Allergy/AdvReac Type Severity Reaction Status Date / Time rosuvastatin calcium AdvReac Muscle Verified 05/11/19 21:09 [From Crestor] Weakness Home Meds: Home Meds Calcium Carbonate/Vitamin D3 [Calcium 600 + Vit D 200] 1 tab PO BID 09/01/15 [ History] Ibuprofen 2 tab PO Q6HR PRN 09/01/15 [History] Multivitamin with Minerals [Multiple Vitamin] 1 tab PO DAILY 09/01/15 [History] Simvastatin 1 tab PO DAILY 09/01/15 [History] ALPRAZolam [Xanax] 0.25 mg PO BID PRN 11/19/18 [History] Megestrol [Megace] 40 mg PO TID 11/19/18 [History] Primidone [Mysoline] 2 tab PO TID 11/19/18 [History] Fluticasone/Salmeterol [Fluticasone-Salmeterol 113-14 MCG Powder Inh] 1 puff INH BID #1 inhaler 11/21/18 [Rx] Lisinopril [Prinivil] 5 mg PO DAILY #30 tablet 11/21/18 [Rx] Magnesium Oxide 400 mg PO BID #60 tablet 11/21/18 [Rx] Acetaminophen [Tylenol Extra Strength] 500 mg PO Q4HR PRN 02/19/19 [History] Dextran 70/Hypromellose [Artificial Tears] 1 drop OP ASDIRECTED PRN 02/19/19 [ History] Metoprolol Succinate [Toprol Xl] 37.5 mg PO DAILY 02/19/19 [History] Albuterol/Ipratropium [DuoNeb 3.0-0.5 MG/3 ML] 3 ml .XX Q4H #1 box 03/04/19 [Rx] Azithromycin 250 mg PO DAILY 5 Days #6 tablet NS 03/04/19 [Rx] Past Medical History HEENT History: Reports: Cataract Cardiovascular History: Reports: Heart Failure, High Cholesterol, Hypertension, ID, Other (See Below) Other Cardiovascular History: proxysmal supraventricular tachycardia. valvular heart disease Respiratory History: Reports: COPD, Other (See Below) Other Respiratory History: Chronic airway obstruction. multiple lung nodules Gastrointestinal History: Reports: Other (See Below) Other Gastrointestinal History: Diverticulitis. Heme positive stool Musculoskeletal History: Reports: Osteoporosis, Other (See Below) Other Musculoskeletal History: knee injury Neurological History: Reports: Other (See Below) Other Neuro History: Essential tremor Psychiatric History: Reports: Anxiety, Depression Endocrine/Metabolic History: Reports: Osteoporosis, Other (See Below) Other Endocrine/Metabolic History: Weight loss Hematologic History: Reports: None Immunologic History: Reports: None Oncologic (Cancer) History: Reports: None Dermatologic History: Reports: Other (See Below) Other Dermatologic History: Alopecia - Past Surgical History Head Surgeries/Procedures: Reports: None GI Surgical History: Reports: Hernia, Inguinal Social & Family History - Caffeine Use Caffeine Use: Reports: Coffee ED ROS GENERAL - Review of Systems Review Of Systems: Comprehensive ROS is negative, except as noted in HPI. Constitutional: Reports: No Symptoms HEENT: Reports: No Symptoms Respiratory: Reports: Shortness of Breath, Wheezing Cardiovascular: Reports: Edema Endocrine: Reports: No Symptoms GI/Abdominal: Reports: No Symptoms Musculoskeletal: Reports: No Symptoms Skin: Reports: No Symptoms Neurological: Reports: No Symptoms Psychiatric: Reports: No Symptoms ED EXAM, GENERAL - Physical Exam Exam: See Below Exam Limited By: No Limitations General Appearance: Alert, Moderate Distress Neck: Normal Inspection, Supple, Non-Tender, Full Range of Motion Respiratory/Chest: Respiratory Distress, Decreased Breath Sounds, Crackles, Accessory Muscle Use Cardiovascular: Normal Peripheral Pulses, No Edema, No Gallop, No JVD, No Murmur , No Rub, Tachycardia GI/Abdominal: Normal Bowel Sounds, Soft, Non-Tender, No Organomegaly, No Distention, No Abnormal Bruit, No Mass Back Exam: Normal Inspection, Full Range of Motion, NT Extremities: Normal Inspection, Normal Range of Motion, Non-Tender, Normal Capillary Refill, No Pedal Edema Neurological: Alert, Oriented, Normal Cognition, Normal Gait, No Motor/Sensory Deficits Psychiatric: Normal Affect, Normal Mood Skin Exam: Warm, Dry, Intact, Normal Color, No Rash Course - Vital Signs Last Recorded V/S: Last Vital Signs Temp 36.8 C 05/11/19 19:25 Pulse 76 05/11/19 19:25 Resp 14 05/11/19 19:25 BP 134/80 05/11/19 19:25 Pulse Ox 94 L 05/11/19 19:25 - Orders/Labs/Meds Orders: Active Orders 24 hr Category Date Time Status Admission Status [Patient Status] [ADT] Routine ADT 05/11/19 21:19 Ordered EKG Documentation Completion [RC] STAT Care 05/11/19 19:42 Active Chest 1V Frontal [CR] Stat Exams 05/11/19 19:40 Taken Labs: Laboratory Tests 05/11/19 05/11/19 05/11/19 Range/Units 19:41 19:41 20:00 WBC 6.5 (4.0-10.0) x10^3/uL RBC 3.71 L (4.00-5.50) x10^6/uL Hgb 11.4 L D (12.0-16.0) g/dL Hct 35.1 (33.0-47.0) % MCV 94.6 H D (78.0-93.0) fL MCH 30.7 (26.0-32.0) pg MCHC 32.5 (32.0-36.0) g/dL RDW Coeff of Vazquez 14.8 (10.0-15.0) % Plt Count 283 (130-400) x10^3/uL Neut % (Auto) 59.2 (50.0-80.0) % Lymph % (Auto) 22.6 L (25.0-50.0) % [place] % (Auto) 13.8 H (2.0-11.0) % Eos % (Auto) 3.8 (0.0-4.0) % Baso % (Auto) 0.6 (0.2-1.2) % POC ABG pH 7.425 (7.35-7.45) POC ABG pCO2 35 (35-45) mmHG POC ABG pO2 75 L (80-105) mmHG POC ABG HCO3 23 (22-26) mmol/L POC ABG Total CO2 24 (23-27) mmol/L POC ABG O2 Sat 95 (95-98) % POC ABG Base Excess -1 (-2-3) mmol/L POC FiO2 0.28 Sodium 139 (136-145) mmol/L Potassium 3.7 (3.5-5.1) mmol/L Chloride 102 (98-107) mmol/L Carbon Dioxide 22 (21-32) mmol/L Anion Gap 18.7 (10-20) mmol/L BUN 16 (7-18) mg/dL Creatinine 1.0 (0.55-1.02) mg/dL Est Cr Clr Drug Dosing TNP Estimated GFR (MDRD) 54 Glucose 73 L (74-106) mg/dL Calcium 8.0 L (8.5-10.1) mg/dL Corrected Calcium 8.80 (8.5-10.1) mg/dL Total Bilirubin 0.2 (0.2-1.0) mg/dL AST 38 H (15-37) U/L ALT 29 (14-59) U/L Alkaline Phosphatase 144 H (46-116) U/L Troponin I < 0.017 (<=0.056) ng/mL NT-Pro-B Natriuret Pep 4996 H (<=450) pg/mL Total Protein 7.0 (6.4-8.2) g/dL Albumin 3.0 L (3.4-5.0) g/dL Globulin 4.0 Albumin/Globulin Ratio 0.75 Meds: Medications Discontinued Medications Generic Name Dose Route Start Last Admin Trade Name Adam PRN Reason Stop Dose Admin Furosemide 20 mg 05/11/19 20:23 05/11/19 21:05 Lasix IV 05/11/19 20:24 20 mg ONETIME ONE Administration Methylprednisolone Sodium Succinate 125 mg 05/11/19 19:41 05/11/19 20:15 Solu-Medrol IVPUSH 05/11/19 19:42 125 mg ONETIME ONE Administration Departure - Departure Time of Disposition: 21:20 Disposition: Admitted As Inpatient 68 Clinical Impression: Congenital heart disease in adult, Hypoxemia, COPD with exacerbation - Discharge Information *PRESCRIPTION DRUG MONITORING PROGRAM REVIEWED*: Not Applicable *COPY OF PRESCRIPTION DRUG MONITORING REPORT IN PATIENT DAX: Not Applicable Referrals: Cleo Ford MD [Primary Care Provider] - - My Orders Last 24 Hours: My Active Orders 05/11/19 19:40 Chest 1V Frontal [CR] Stat 05/11/19 19:42 EKG Documentation Completion [RC] STAT 05/11/19 21:19 Admission Status [Patient Status] [ADT] Routine - Assessment/Plan Last 24 Hours: My Active Orders 05/11/19 19:40 Chest 1V Frontal [CR] Stat 05/11/19 19:42 EKG Documentation Completion [RC] STAT 05/11/19 21:19 Admission Status [Patient Status] [ADT] Routine Assessment:: 1. COPD exacerbation 2. Fluid overload 3. Hypoxemia with hypercapnia 4. Respiratory failure requiring oxygenation Plan: 1. Solu-Medrol 125 mg given IV and emergency department 2. EKG completed in the emergency department. Results reviewed with patient 3. Chest x-ray completed in the emergency department. Results reviewed with patient 4. Lasix 20 mg IV given in emergency department 5. Continue Oxygen therapy in the emergency department saturations greater than 92% 6. Dr. Montgomery contacted regarding potential admission to acute care for acute exacerbation of COPD and fluid overload. Patient does have home oxygenation at bedtime however she is currently requiring oxygenation during awake hours due to the shortness of breath. She also has some increased fluid retention and has been given Lasix. Patient was trialed with ambulation at the bedside in the emergency department however she became very short of breath 7. Dr. Montgomery is agreeable to acute care admission for further medical management patient . 8. Patient and family updated and are agreeable with the above plan of care. nursing staff updated. 9. All questions and concerns addressed to prior to the patient's discharge
--- NOTE | 2019-05-11 22:40 | PCM.HP.2 ---
H&P History of Present Illness - General Date of Service: 05/11/19 Admit Problem/Dx: Admission Diagnosis/Problem Admission Diagnosis/Problem Shortness of breath Source of Information: Patient History Limitations: Reports: No Limitations - History of Present Illness Initial Comments - Free Text/Narative: Mrs. Burroughs is a 79 yo female who presented to the ER for evaluation of increased shortness of breath over the past 24 hours. She woke up with the symptoms yesterday morning and they have been progressively worsening since then. Today, she realized that she could not even walk 5-6 steps without becoming short of breath; therefore, she called EMS and was transported to the ER for further evaluation. She has been monitoring her weights daily and notes that she was up to 130 at her appointment in clinic this week from 125 at her cardiology appointment a couple of weeks prior. She was 129 pounds yesterday. She has a chronic cough productive of clear sputum but denies any increase in cough or sputum production recently. She has not been around any ill contacts. She does note some swelling in her legs, which is unusual for her as well. She denies missing any of her medications but does admit to only using her formoterol once/ day as this increases her tremors. She denies any fever, chills, myalgias, or malaise. Her shortness of breath resolves with rest. She did do a DuoNeb this morning with some temporary benefit. - Related Data Allergies/Adverse Reactions: Allergies Allergy/AdvReac Type Severity Reaction Status Date / Time rosuvastatin calcium AdvReac Muscle Verified 05/11/19 21:09 [From Crestor] Weakness Home Medications: Home Meds Calcium Carbonate/Vitamin D3 [Calcium 600 + Vit D 200] 1 tab PO BID 09/01/15 [ History] Ibuprofen 2 tab PO Q6HR PRN 09/01/15 [History] Multivitamin with Minerals [Multiple Vitamin] 1 tab PO DAILY 09/01/15 [History] Simvastatin 1 tab PO DAILY 09/01/15 [History] ALPRAZolam [Xanax] 0.25 mg PO BID PRN 11/19/18 [History] Megestrol [Megace] 40 mg PO TID 11/19/18 [History] Primidone [Mysoline] 2 tab PO TID 11/19/18 [History] Fluticasone/Salmeterol [Fluticasone-Salmeterol 113-14 MCG Powder Inh] 1 puff INH BID #1 inhaler 11/21/18 [Rx] Lisinopril [Prinivil] 5 mg PO DAILY #30 tablet 11/21/18 [Rx] Magnesium Oxide 400 mg PO BID #60 tablet 11/21/18 [Rx] Acetaminophen [Tylenol Extra Strength] 500 mg PO Q4HR PRN 02/19/19 [History] Dextran 70/Hypromellose [Artificial Tears] 1 drop OP ASDIRECTED PRN 02/19/19 [ History] Metoprolol Succinate [Toprol Xl] 37.5 mg PO DAILY 02/19/19 [History] Albuterol/Ipratropium [DuoNeb 3.0-0.5 MG/3 ML] 3 ml .XX Q4H #1 box 03/04/19 [Rx] Azithromycin 250 mg PO DAILY 5 Days #6 tablet NS 03/04/19 [Rx] Past Medical History HEENT History: Reports: Cataract Cardiovascular History: Reports: Heart Failure, High Cholesterol, Hypertension, [place], Pulmonary Hypertension, Other (See Below) Other Cardiovascular History: proxysmal supraventricular tachycardia. valvular heart disease Respiratory History: Reports: COPD, Other (See Below) Other Respiratory History: Chronic airway obstruction. multiple lung nodules Gastrointestinal History: Reports: Chronic Diarrhea, Other (See Below) Other Gastrointestinal History: Diverticulitis. Heme positive stool Musculoskeletal History: Reports: Osteoporosis, Other (See Below) Other Musculoskeletal History: knee injury Neurological History: Reports: Other (See Below) Other Neuro History: Essential tremor Psychiatric History: Reports: Anxiety, Depression Endocrine/Metabolic History: Reports: Osteoporosis, Other (See Below) Other Endocrine/Metabolic History: Weight loss Hematologic History: Reports: None Immunologic History: Reports: None Oncologic (Cancer) History: Reports: None Dermatologic History: Reports: Other (See Below) Other Dermatologic History: Alopecia - Past Surgical History Head Surgeries/Procedures: Reports: None Cardiovascular Surgical History: Reports: Cardiac Ablation Social & Family History - Family History Cardiac: Reports: NE Neurological: Reports: CVA - Tobacco Use Smoking Status *Q: Former Smoker - Caffeine Use Caffeine Use: Reports: Coffee - Alcohol Use Alcohol Use History: Yes Alcohol Use in Last Twelve Months: Yes Alcohol Use Frequency: Daily - Recreational Drug Use Recreational Drug Use: No - Living Situation & Occupation Living situation: Reports: , with Significant Other 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[employer]) H&P Review of Systems - Review of Systems: Review Of Systems: See Below General: Reports: No Symptoms HEENT: Reports: No Symptoms Pulmonary: Reports: Shortness of Breath, Cough Cardiovascular: Reports: No Symptoms Gastrointestinal: Reports: No Symptoms Genitourinary: Reports: No Symptoms Musculoskeletal: Reports: No Symptoms Skin: Reports: No Symptoms Psychiatric: Reports: No Symptoms Exam - Exam Exam: See Below - Vital Signs Vital Signs: Last Vital Signs Temp 36.6 C 05/11/19 22:23 Pulse 72 05/11/19 22:23 Resp 20 05/11/19 22:23 BP 162/85 H 05/11/19 22:23 Pulse Ox 96 05/11/19 22:23 Weight: 59.693 kg - Exam General: Alert, Oriented, Cooperative, Mild Distress (respiratory distress with exertion) HEENT: Conjunctiva Clear, Mucosa Moist & [place], Posterior Pharynx Clear, Pupils Equal, Pupils Reactive Neck: Supple, Trachea Midline. No: Lymphadenopathy, Thyromegaly Lungs: Normal Respiratory Effort (at rest), Crackles (both bases), Wheezing ( scattered end expiratory wheezes throughout) Cardiovascular: Regular Rate, Regular Rhythm, Normal S1, Normal S2 GI/Abdominal Exam: Normal Bowel Sounds, Soft, Non-Tender, No Organomegaly, No Distention, No Mass Extremities: Normal Inspection, Normal Capillary Refill, Pedal Edema (1+ to the knees bilaterally) Peripheral Pulses: 2+: Radial (L), Radial (R) Skin: Warm, Dry, Intact - Patient Data Lab Results Last 24 hrs: Laboratory Results - last 24 hr 05/11/19 05/11/19 05/11/19 Range/Units 19:41 19:41 20:00 WBC 6.5 (4.0-10.0) x10^3/uL RBC 3.71 L (4.00-5.50) x10^6/uL Hgb 11.4 L D (12.0-16.0) g/dL Hct 35.1 (33.0-47.0) % MCV 94.6 H D (78.0-93.0) fL MCH 30.7 (26.0-32.0) pg MCHC 32.5 (32.0-36.0) g/dL RDW Coeff of Vazquez 14.8 (10.0-15.0) % Plt Count 283 (130-400) x10^3/uL Neut % (Auto) 59.2 (50.0-80.0) % Lymph % (Auto) 22.6 L (25.0-50.0) % [place] % (Auto) 13.8 H (2.0-11.0) % Eos % (Auto) 3.8 (0.0-4.0) % Baso % (Auto) 0.6 (0.2-1.2) % POC ABG pH 7.425 (7.35-7.45) POC ABG pCO2 35 (35-45) mmHG POC ABG pO2 75 L (80-105) mmHG POC ABG HCO3 23 (22-26) mmol/L POC ABG Total CO2 24 (23-27) mmol/L POC ABG O2 Sat 95 (95-98) % POC ABG Base Excess -1 (-2-3) mmol/L POC FiO2 0.28 Sodium 139 (136-145) mmol/L Potassium 3.7 (3.5-5.1) mmol/L Chloride 102 (98-107) mmol/L Carbon Dioxide 22 (21-32) mmol/L Anion Gap 18.7 (10-20) mmol/L BUN 16 (7-18) mg/dL Creatinine 1.0 (0.55-1.02) mg/dL Est Cr Clr Drug Dosing TNP Estimated GFR (MDRD) 54 Glucose 73 L (74-106) mg/dL Calcium 8.0 L (8.5-10.1) mg/dL Corrected Calcium 8.80 (8.5-10.1) mg/dL Total Bilirubin 0.2 (0.2-1.0) mg/dL AST 38 H (15-37) U/L ALT 29 (14-59) U/L Alkaline Phosphatase 144 H (46-116) U/L Troponin I < 0.017 (<=0.056) ng/mL NT-Pro-B Natriuret Pep 4996 H (<=450) pg/mL Total Protein 7.0 (6.4-8.2) g/dL Albumin 3.0 L (3.4-5.0) g/dL Globulin 4.0 Albumin/Globulin Ratio 0.75 Result Diagrams: 05/11/19 19:41 05/11/19 19:41 - Problem List (1) Acute respiratory failure SNOMED Code(s): 93751439 ICD Code: J96.00 - ACUTE RESPIRATORY FAILURE, UNSP W HYPOXIA OR HYPERCAPNIA Status: Acute Current Visit: Yes Qualifiers: Respiratory failure complication: hypoxia Qualified Code(s): J96.01 - Acute respiratory failure with hypoxia (2) COPD with exacerbation SNOMED Code(s): 541447541 ICD Code: J44.1 - CHRONIC OBSTRUCTIVE PULMONARY DISEASE W (ACUTE) EXACERBATION Status: Acute Current Visit: Yes (3) CHF (congestive heart failure) SNOMED Code(s): 21346869 ICD Code: I50.9 - HEART FAILURE, UNSPECIFIED Status: Acute Current Visit : Yes Qualifiers: Heart failure type: systolic Heart failure chronicity: acute on chronic Qualified Code(s): I50.23 - Acute on chronic systolic (congestive) heart failure (4) Pulmonary hypertension SNOMED Code(s): 54703228 ICD Code: I27.20 - PULMONARY HYPERTENSION, UNSPECIFIED Status: Chronic Current Visit: Yes (5) Hypertension SNOMED Code(s): 31365750 ICD Code: I10 - ESSENTIAL (PRIMARY) HYPERTENSION Status: Chronic Current Visit: Yes Qualifiers: Hypertension type: essential hypertension Qualified Code(s): I10 - Essential (primary) hypertension (6) Anxiety SNOMED Code(s): 40820238 ICD Code: F41.9 - ANXIETY DISORDER, UNSPECIFIED Status: Chronic Current Visit: Yes (7) Essential tremor SNOMED Code(s): 103633152 ICD Code: G25.0 - ESSENTIAL TREMOR Status: Chronic Current Visit: No (8) Hypercholesteremia SNOMED Code(s): 38030160 ICD Code: E78.00 - PURE HYPERCHOLESTEROLEMIA, UNSPECIFIED Status: Chronic Current Visit: No (9) Osteoporosis SNOMED Code(s): 82884101 ICD Code: M81.0 - AGE-RELATED OSTEOPOROSIS W/O CURRENT PATHOLOGICAL FRACTURE Status: Chronic Current Visit: No Qualifiers: Osteoporosis type: age-related Presence of current pathological fracture: without current pathological fracture Qualified Code(s): M81.0 - Age-related osteoporosis without current pathological fracture Problem List Initiated/Reviewed/Updated: Yes Orders Last 24hrs: Active Orders 24 hr Category Date Time Status Admission Status [Patient Status] [ADT] Routine ADT 05/11/19 21:19 Active EKG Documentation Completion [RC] STAT Care 05/11/19 19:42 Active Notify Provider Vital Signs [RC] ASDIRECTED Care 05/11/19 22:31 Ordered Oxygen Therapy [RC] PRN Care 05/11/19 22:30 Ordered Up With Assistance [RC] ASDIRECTED Care 05/11/19 22:30 Ordered VTE/DVT Education [RC] PER UNIT ROUTINE Care 05/11/19 22:30 Ordered Vital Signs [RC] Q4H Care 05/11/19 22:30 Ordered Chest 1V Frontal [CR] Stat Exams 05/11/19 19:40 Taken BASIC METABOLIC PANEL,BMP [CHEM] AM Lab 05/12/19 05:11 Ordered CBC WITH AUTO DIFF [HEME] AM Lab 05/12/19 05:11 Ordered Furosemide [Lasix] Med 05/12/19 08:00 Once 20 mg IV ONETIME ONE predniSONE Med 05/12/19 08:00 Ordered 40 mg PO WITHBREAKFAST Resuscitation Status Routine Resus Stat 05/11/19 22:30 Ordered Medication Orders Furosemide (Lasix) 20 mg IV ONETIME ONE Stop: 05/12/19 08:01 Prednisone (Prednisone) 40 mg PO WITHBREAKFAST NOELLE Assessment/Plan Comment:: 79 yo female admitted with acute hypoxic respiratory failure secondary to COPD and CHF exacerbations. #1 Acute hypoxic respiratory failure #2 COPD with exacerbation #3 Acute on chronic systolic heart failure - Patient with acute on chronic hypoxic respiratory failure. - Will give additional supplemental oxygen to maintain saturations >92%. - Patient with resumed both COPD and CHF exacerbations. - Will re-dose 20 mg of lasix tomorrow am IV. Further dosing can be determined by how she responds to these initial doses. - She got solu-medrol in the ER. Will start prednisone 40 mg PO tomorrow. - No role for antibiotics given shortness of breath is her only symptoms and she has a negative CXR with normal WBC. - Recheck labs in the am. #4 Anemia - Hgb down compared to previous. - Presume this is secondary to dilution in light of her CHF. - Will monitor daily. If dropping further, will consider other etiologies. #5 Pulmonary Hypertension #6 Hypertension #7 Anxiety #8 Essential tremor #9 Hyperlipidemia #10 Osteoporosis - Continue home medications. Patient is admitted to acute as it is expected she will be admitted for at least 48 hours to treat the above conditions. Will wean oxygen as able. See details under problems listed above. Recheck labs in the am. Code status is full - discussed with patient on admission. Holding off on VTE prophylaxis until it is ensured her hemoglobin is stable.
[2019-05-11] MEDS ORDERED: Ibuprofen 200 MG Tab PO PRN (22:57)
[2019-05-12] MEDS: Albuterol/Ipratropium 3.0-0.5 MG/3 ML Neb Soln SCH ×4 (01:39→11:10)
[2019-05-12 07:31] LABS: ANION GAP 14.4 mmol/L (10-20)
[2019-05-12] MEDS ORDERED: Furosemide 20 MG/2 ML VIAL IV ONE (08:00)
--- NOTE | 2019-05-12 08:10 | CR ---
[id number] RAD/RAD Chest PA or AP 1V EXAM: RAD Chest PA or AP 1V INDICATION: SHORTNESS OF BREATH. COMPARISON: March 04, 2019. DISCUSSION: Cardiomediastinal silhouette is the in size and contour. No infiltrate, effusion, pneumothorax, or edema. Left basilar subsegmental atelectasis and/or scarring. IMPRESSION: No acute cardiopulmonary abnormality. Jay Curry DO 05/12/19 0809 Thank you for allowing us to participate in the care of your patient.
[2019-05-12] MEDS: Megestrol 40 MG Tab PO SCH (08:42)
[2019-05-12] MEDS: Sertraline 25 MG Tab PO SCH (08:42)
[2019-05-12] MEDS: predniSONE 20 MG Tab PO SCH (08:42)
[2019-05-12] MEDS: Losartan 50 MG Tab PO SCH (08:45)
[2019-05-12] MEDS: Primidone 50 MG Tab PO SCH ×3 (08:45→19:23)
[2019-05-12] MEDS: Furosemide 20 MG Tab PO SCH (08:46)
--- NOTE | 2019-05-12 09:19 | PN ---
Progress Note for ANA ESPARZA Date: 05/12/2019 Room #: VM.210 SUBJECTIVE: The patient was admitted yesterday after having been short of breath that was felt to be an exacerbation of COPD as well as some CHF. She received both Solu-Medrol yesterday as well as some IV Lasix. She is breathing better. She comments that her legs were quite achy today. The patient is not normally on any baseline Lasix. The patient was noted her hemoglobin to be 11.4, which is not significant. Her proBNP had been elevated at 4996. OBJECTIVE: Vital Signs: Her temperature is 36.9, pulse 79, blood pressure is 114/72, respiratory rate 16, saturations are 90% on 2 L. General: She is alert, talkative. The patient does have tremor at rest. Heart: Regular rate and rhythm. Lungs: Reveal diminished breath sounds on bases. Odor of tobacco is smelled. Abdomen: Soft. Extremities: No edema. LABORATORY DATA: Lab today shows that her white blood cell count is 4.7, hemoglobin 11.3, sodium 140, potassium 4.4, creatinine is 1.2. GFR is 44. IMPRESSION: 1. Exacerbation of chronic obstructive pulmonary disease. 2. Exacerbation of congestive heart failure. PLAN: We will place her on some baseline oral Lasix right now of 20 mg daily, and she was started on oral prednisone today. We will have Physical Therapy consult patient for strengthening. We will check daily weights. We will repeat lab and cxr tomorrow. Do anticipate hopeful discharge home tomorrow if she is stable. For her leg cramping, we will just use hot packs for this. GM05/12/2019 08:31:59 MODL: 05/12/2019 09:10:48 /[id number] MTDD
[2019-05-12] MEDS: Albuterol/Ipratropium 3.0-0.5 MG/3 ML Neb Soln NEB SCH ×3 (15:04→22:56)
[2019-05-12] MEDS ORDERED: Metoprolol Succinate 50 MG Tab.ER PO SCH (20:00)
[2019-05-12] MEDS ORDERED: Simvastatin 20 MG Tab PO SCH (20:00)
[2019-05-13] MEDS: Albuterol/Ipratropium 3.0-0.5 MG/3 ML Neb Soln NEB SCH ×3 (03:00→11:38)
[2019-05-13 07:29] LABS: ANION GAP 14.2 mmol/L (10-20)
--- NOTE | 2019-05-13 07:56 | CR ---
[id number] RAD/RAD Chest PA And Lateral EXAM: FRONTAL AND LATERAL CHEST INDICATION: Chronic obstructive pulmonary disease exacerbation follow-up. COMPARISON: May 11, 2019. DISCUSSION: Mild bibasilar atelectasis and/or infiltrates are likely stable when allowances are made for difference in positioning and technique. Stable mild cardiomegaly without evidence of pulmonary edema. Hyperinflation consistent with the clinical history of chronic obstructive pulmonary disease. IMPRESSION: 1. Mild bibasilar infiltrates and/or atelectasis without definite interval change. Silviano Frias MD 05/13/19 0753 Thank you for allowing us to participate in the care of your patient.
[2019-05-13] MEDS: Megestrol 40 MG Tab PO SCH (08:34)
[2019-05-13] MEDS: Losartan 50 MG Tab PO SCH (08:34)
[2019-05-13] MEDS: Primidone 50 MG Tab PO SCH ×2 (08:34→11:37)
[2019-05-13] MEDS: predniSONE 20 MG Tab PO SCH (08:35)
[2019-05-13] MEDS: Furosemide 20 MG Tab PO SCH (08:35)
[2019-05-13] MEDS: Sertraline 25 MG Tab PO SCH (08:35)
--- NOTE | 2019-05-13 09:50 | PN ---
Progress Note for ANA ESPARZA Date: 05/13/2019 Room #: VM.210 SUBJECTIVE: She is feeling much better today. She is eager to go home. She is not short of breath. OBJECTIVE: Vital Signs: Her weight today is 56.69, which is down 1.4 kg from yesterday and down 2.3 from admission. Her temperature is 36.4, blood pressure is 118/51, pulse is 65, respirations are 20, saturations are 91 on room air this morning. It is noted that when patient ambulates, her oxygen levels do drop down to the 80s. General: She is slightly flushed. HEENT: She does have tremor at rest of her head. Heart: Regular rate and rhythm. Lungs: Diminished breath sounds on bases. Abdomen: Soft. Extremities: No edema. LABORATORY DATA: Her lab today shows her hemoglobin 11.8 which is stable, white blood cell count 6.0. Sodium is 143, potassium 4.2, creatinine 1.2, GFR is 44. ProBNP is 4316, improved from 4996. Magnesium is 1.9. IMPRESSION: 1. Exacerbation of chronic obstructive pulmonary disease with exacerbation of congestive heart failure with chronic anxiety disorder. 2. Tremor at rest of her head. 3. Hypertension. PLAN: We will discharge patient home today. She will be on oral prednisone and her oral Lasix had been resumed at 20 mg a day. The patient questions about her nebulizers. I am not certain if Shayy was talking about trying Xopenex for patient versus albuterol because of her tremors. I believe that had been tried in the past. She also I believe had been on Yupelri at home as a nebulizer, but has been on DuoNeb here, so we will continue her on DuoNeb until she is seen in the clinic for recheck. GM05/13/2019 08:37:42 MODL: 05/13/2019 09:28:22 /[id number]
[2019-05-13 09:55] VITALS: BP 113/67; PULSE 76
--- NOTE | 2019-05-13 16:56 | DISCH ---
PRIMARY DIAGNOSES: 1. Exacerbation of chronic obstructive pulmonary disease. 2. Exacerbation of congestive heart failure. 3. Chronic obstructive pulmonary disease. 4. Hypertension. 5. Chronic anxiety disorder. 6. Essential tremor. 7. Pulmonary hypertension. 8. Hypertension. 9. Hypercholesterolemia. 10.Osteoporosis. SUMMARY OF ADMIT HISTORY AND PHYSICAL: The patient presented to the emergency room feeling short of breath. She has a long history of CHF, using home oxygen and COPD. She woke up in the morning, despite having oxygen on during the night, needed nebulizer 1 time in the morning, presented to the emergency room after lunch. She was still feeling more short of breath. She improved after breathing treatment. Her physical exam on presentation showed respiratory distress, decreased breath sounds, crackles using accessory muscles. Her respiratory rate was 14, saturations were 94. Her initial lab work showed her white blood cell count of 6.5, hemoglobin 11.4. Blood gases; pH 7.45, pCO2 of 35, PO2 of 75, bicarb 24, sats were 95%. Sodium 139, potassium 3.7, creatinine 1.0, GFR 54, glucose 73. Liver function tests showed AST 38, alkaline phosphatase 144. Troponin less than 0.017. ProBNP 4996. Chest x-ray did show some questionable fluid on bases. SUMMARY OF HOSPITAL COURSE: The patient was given IV Solu-Medrol 125 mg as well as IV Lasix. She did diurese. Her oxygen levels were monitored. She was then switched over to oral prednisone and placed on oral Lasix. She did feel better by next morning, but she was still working a little bit harder to breathe. Her weight had gone up actually, but it was a different scale. By 05/13/2019, her weight had gone down 2 kg from admission. She was feeling much better. Her oxygen levels had improved on room air, they were at 91; with activity, they did drop into the 80s, so she still does need oxygen with exertion. Her blood pressure is 118/51. Her lab work that was checked on 05/13/2019 showed a white blood cell count same at 6.0, hemoglobin 11.8. Sodium was 143, potassium 4.2, creatinine slightly elevated at 1.2, GFR was 44. Magnesium stable at 1.9. ProBNP had improved to 4316. Chest x-ray had improved to either show minimal atelectasis versus mild fluid, but was noted to be improved. Physical Therapy did see patient and felt that she was at her baseline. She will be discharged home. She does not need home health. MEDICATIONS: At discharge will be prednisone 40 mg a day for 5 more days, DuoNeb q.i.d., Lasix 20 mg p.o. daily, multivitamin 1 pill daily, calcium with vitamin D 1 pill twice a day, simvastatin 20 mg daily, ibuprofen 400 mg q.6 hours p.r.n., Mysoline 50 mg 2 pills 3 times a day, Megace 40 mg 1 pill daily, alprazolam 0.25 mg 1 pill twice a day as needed, fluticasone/salmeterol 113/14 one puff b.i.d., magnesium oxide 400 mg 1 pill twice a day, Artificial Tears 1 drop every 4 hours as needed, Tylenol 500 mg q.4 hours p.r.n., metoprolol-XL 25 mg she takes 4 pills daily, valsartan 80 mg 1 p.o. b.i.d., Zoloft 25 mg half a pill daily. ASSESSMENT: The patient at discharge is full code level status. Because of her severe lung disease, I do anticipate her to have return of her health problems. To note, the patient is not smoking, but she does have some alcohol consumption that we may need to consider talking more directly about and we will have the patient follow up to see me in a weeks' time. Her diet is regular. GM05/13/2019 08:43:13 MODL: 05/13/2019 16:49:28 /[id number]
== END 2019-05-13 12:35 | disposition home or self-care (01) | DRG 291 ==
LOC: VM.ED 19:25 → VM.MS 21:19
PROVIDERS: ADMIT Family Medicine; ATTEND Family Medicine
DX: I11.0 Hypertensive heart disease with heart failure (principal); J96.01 Acute respiratory failure with hypoxia; J96.92 Respiratory failure, unspecified with hypercapnia; J96.91 Respiratory failure, unspecified with hypoxia; I50.9 Heart failure, unspecified; J44.1 Chronic obstructive pulmonary disease with (acute) exacerbation; I50.23 Acute on chronic systolic (congestive) heart failure; G25.0 Essential tremor; F41.9 Anxiety disorder, unspecified; I27.20 Pulmonary hypertension, unspecified; R25.1 Tremor, unspecified; Z99.81 Dependence on supplemental oxygen; E78.00 Pure hypercholesterolemia, unspecified; M81.0 Age-related osteoporosis without current pathological fracture; Z79.52 Long term (current) use of systemic steroids; F32.9 Major depressive disorder, single episode, unspecified; D64.9 Anemia, unspecified; Z88.8 Allergy status to other drugs, medicaments and biological substances; Z79.899 Other long term (current) drug therapy; Z98.49 Cataract extraction status, unspecified eye; I25.2 Old myocardial infarction; Z87.891 Personal history of nicotine dependence
CPT/HCPCS: 36415; 36600; 71045; 71046; 80048; 80053; 82803; 83735; 83880; 84484; 85025; 93005; 94640; 96374; 96375; 97161-GP; 97530-GP; 99284-GF; 99285-25; A9270-GY; J1940; J2930; J7620-GY

== ENCOUNTER 2021-02-14 17:20 | Emergency (ER) | payer MEDICARE, OTHER ==
--- NOTE | 2021-02-14 17:35 | EDM.PDOC ---
ED HPI GENERAL MEDICAL PROBLEM - General Time Seen by Provider: 02/14/21 17:34 Source of Information: Reports: Patient, Provider (Dr. Ford), RN, RN Notes Reviewed, Significant Other, Other (Records from clinic visit today) History Limitations: Reports: No Limitations - History of Present Illness INITIAL COMMENTS - FREE TEXT/NARRATIVE: Patient is a 80-year-old female who presents to ER from [facility] after being seen by Dr. Ford. Patient reports increased shortness of breath over the past 2 weeks. States she does use oxygen at home and uses it continuously. She states despite the oxygen she does feel very short of breath, states she has been coughing quite a bit over the past 2 weeks with a productive cough of clear to yellow sputum. Patient denies any fever chills, denies chest pains denies pain in general, denies diarrhea but admits to nausea from time to time. Patient admits to decreased appetite as well. Several labs were completed at the clinic, D-dimer was found to be elevated. COVID-19 swab was negative. WBC, procalcitonin, lactic acid all found to be negative. BNP 1363. Onset: Gradual, Other (2 weeks) - Related Data Allergies Allergy/AdvReac Type Severity Reaction Status Date / Time rosuvastatin calcium AdvReac Muscle Verified 02/14/21 17:52 [From Yohana] Weakness Home Meds: Home Meds Calcium Carbonate/Vitamin D3 [Calcium 600 + Vit D 200] 1 tab PO BID 09/01/15 [History] Ibuprofen 400 tab PO Q6HR PRN 09/01/15 [History] Multivitamin with Minerals [Multiple Vitamin] 1 tab PO DAILY 09/01/15 [History] Simvastatin 20 mg PO DAILY 09/01/15 [History] ALPRAZolam [Xanax] 0.25 mg PO BID PRN 11/19/18 [History] Megestrol [Megace] 40 mg PO DAILY 11/19/18 [History] Primidone [Mysoline] 2 tab PO TID 11/19/18 [History] Fluticasone/Salmeterol [Fluticasone-Salmeterol 113-14 MCG Powder Inh] 1 puff INH BID #1 inhaler 11/21/18 [Rx] Magnesium Oxide 400 mg PO BID #60 tablet 11/21/18 [Rx] Acetaminophen [Tylenol Extra Strength] 500 mg PO Q4HR PRN 02/19/19 [History] Dextran 70/Hypromellose [Artificial Tears] 1 drop OP Q4H PRN 02/19/19 [History] Metoprolol Succinate [Toprol Xl] 100 mg PO DAILY 02/19/19 [History] Valsartan 80 mg PO BID 05/11/19 [History] Albuterol/Ipratropium [DuoNeb 3.0-0.5 MG/3 ML] 3 ml NEB Q6H 05/12/19 [History] Furosemide 20 mg PO DAILY 05/12/19 [History] Sertraline [Zoloft] 12.5 mg PO DAILY 05/12/19 [History] predniSONE 40 mg PO WITHBREAKFAST 5 Days #10 tablet 05/13/19 [Rx] Past Medical History HEENT History: Reports: Cataract Cardiovascular History: Reports: Heart Failure, High Cholesterol, Hypertension, [place], Pulmonary Hypertension, Other (See Below) Other Cardiovascular History: proxysmal supraventricular tachycardia. valvular heart disease Respiratory History: Reports: COPD, Other (See Below) Other Respiratory History: Chronic airway obstruction. multiple lung nodules Gastrointestinal History: Reports: Chronic Diarrhea, Other (See Below) Other Gastrointestinal History: Diverticulitis. Heme positive stool Musculoskeletal History: Reports: Osteoporosis, Other (See Below) Other Musculoskeletal History: knee injury Neurological History: Reports: Other (See Below) Other Neuro History: Essential tremor Psychiatric History: Reports: Anxiety, Depression Endocrine/Metabolic History: Reports: Osteoporosis, Other (See Below) Other Endocrine/Metabolic History: Weight loss Hematologic History: Reports: None Immunologic History: Reports: None Oncologic (Cancer) History: Reports: None Dermatologic History: Reports: Other (See Below) Other Dermatologic History: Alopecia - Past Surgical History Head Surgeries/Procedures: Reports: None Cardiovascular Surgical History: Reports: Cardiac Ablation Social & Family History - Family History Family Medical History: No Pertinent Family History Cardiac: Reports: [place] Neurological: Reports: CVA - Caffeine Use Caffeine Use: Reports: Coffee - Living Situation & Occupation Living situation: Reports: , with Significant Other 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 ED EXAM, GENERAL - Physical Exam Exam: See Below Exam Limited By: No Limitations General Appearance: Alert, WD/WN, Mild Distress Eye Exam: Bilateral Eye: EOMI, Normal Inspection Ears: Normal External Exam, Hearing Grossly Normal Nose: Normal Inspection Throat/Mouth: Normal Inspection, Normal Voice, No Airway Compromise Head: Atraumatic, Normocephalic Neck: Normal Inspection, Supple, Non-Tender, Full Range of Motion Respiratory/Chest: Decreased Breath Sounds Cardiovascular: Normal Peripheral Pulses, Regular Rate, Rhythm, No Edema, No Gallop, No JVD, No Murmur, No Rub Peripheral Pulses: 2+: Radial (L), Radial (R) GI/Abdominal: Normal Bowel Sounds, Soft, Non-Tender (Female) Exam: Deferred Rectal (Female) Exam: Deferred Back Exam: Normal Inspection, Full Range of Motion Extremities: Normal Inspection, Normal Range of Motion, Non-Tender, No Pedal Edema, Normal Capillary Refill Neurological: Alert, Oriented, Normal Cognition, No Motor/Sensory Deficits Psychiatric: Normal Affect, Normal Mood Skin Exam: Warm, Dry, Intact, Normal Color, No Rash Lymphatic: No Adenopathy Course - Vital Signs Last Recorded V/S: Last Vital Signs Temp 97.1 F 02/14/21 17:59 Pulse 97 02/14/21 17:59 Resp 25 H 02/14/21 17:59 BP 114/59 L 02/14/21 17:59 Pulse Ox 93 L 02/14/21 17:59 - Orders/Labs/Meds Orders: Active Orders 24 hr Category Date Time Status RT Aerosol Therapy [RC] ASDIRECTED Care 02/14/21 19:24 Active Meds: Medications Discontinued Medications Generic Name Dose Route Start Last Admin Trade Name Adam PRN Reason Stop Dose Admin Albuterol/Ipratropium 3 ml 02/14/21 19:24 Albuterol/Ipratropium 3.0-0.5 Mg/3 Ml Neb Soln NEB 02/14/21 19:25 ONETIME ONE Azithromycin 500 mg 02/14/21 19:25 Azithromycin 250 Mg Tab PO 02/14/21 19:26 ONETIME ONE Ceftriaxone Sodium 1 gm 02/14/21 19:24 Ceftriaxone 1 Gm Vial IVPUSH 02/14/21 19:25 STAT ONE Iopamidol 100 ml 02/14/21 17:36 02/14/21 18:45 Iopamidol 755 Mg/Ml 100 Ml Bottle IVPUSH 02/14/21 17:37 100 ml ONETIME ONE Administration Methylprednisolone Sodium Succinate 125 mg 02/14/21 19:24 Methylprednisolone Sodium Succinate 125 Mg/2 Ml Sdv IVPUSH 02/14/21 19:25 ONETIME ONE - Radiology Interpretation Free Text/Narrative:: CT of CHest/R/O PE: No acute findings See rad report - Re-Assessments/Exams Free Text/Narrative Re-Assessment/Exam: 02/14/21 17:36 Labwork provided from the [facility] today include: CBC WNL BMP - only abnormals: Sodium 133, Chloride 93 All other findings on BMP were normal COVID-19 Negative Procalcitonin: <0.05 LDH: 217 NT-proBNP: 1363 Lactic Acid: 0.8 D-Dimer: 0.90 (<=0.58) Departure - Departure Time of Disposition: 20:15 Disposition: Home, Self-Care 01 Condition: Fair Clinical Impression: COPD with exacerbation - Discharge Information *PRESCRIPTION DRUG MONITORING PROGRAM REVIEWED*: No *COPY OF PRESCRIPTION DRUG MONITORING REPORT IN PATIENT DAX: No Instructions: Chronic Obstructive Pulmonary Disease Exacerbation, [id number] Referrals: Cleo Ford MD [Primary Care Provider] - Additional Instructions: RX: Azithromycin 250mg orally for the next 4 days (begin 02/15/21) RX: Prednisone 40mg orally once daily for the next 4 days (begin 02/15/21) Continue to use Oxygen as directed at home Continue to take home medications and nebulizers as prescribed Return to the ER with any worsening of symptoms Follow up with your [employer] Sepsis Event Note (ED) - Focused Exam Vital Signs: Vital Signs Temp Pulse Resp BP Pulse Ox 02/14/21 17:59 97.1 F 97 25 H 114/59 L 93 L 02/14/21 17:56 97.1 F 97 25 H 114/59 L 93 L - My Orders Last 24 Hours: My Active Orders 02/14/21 19:24 RT Aerosol Therapy [RC] ASDIRECTED - Assessment/Plan Last 24 Hours: My Active Orders 02/14/21 19:24 RT Aerosol Therapy [RC] ASDIRECTED
[2021-02-14 17:58] VITALS: BP 114/59
[2021-02-14] MEDS: Iopamidol 755 Mg/ML 100 ML Bottle IVPUSH ONE (18:45)
--- NOTE | 2021-02-14 19:23 | CT ---
[id number] CT/CTA Chest Exam: CTA Chest Clinical Data: SHORTNESS OF BREATH ELEVATED D-DIMER COMPARISON: CORRELATION IS MADE WITH DECEMBER 09, 2019 FINDINGS: There is motion artifact There is no pulmonary parenchymal infiltrate. There are atheromatous calcified There are no pulmonary emboli There is no mediastinal mass or adenopathy IMPRESSION: NO PULMONARY EMBOLI Jose Mendez MD 02/14/211921 Thank you for allowing us to participate in the care of your patient.
[2021-02-14] MEDS: Albuterol/Ipratropium 3.0-0.5 MG/3 ML Neb Soln NEB ONE (19:42)
[2021-02-14] MEDS: methylPREDNISolone Sodium Succinate 125 MG/2 ML SDV IVPUSH ONE (19:49)
[2021-02-14] MEDS: cefTRIAXone 1 GM Vial IVPUSH ONE (19:51)
[2021-02-14] MEDS: Azithromycin 250 MG Tab PO ONE (19:52)
[2021-02-15 00:08] VITALS: PULSE 98
== END 2021-02-14 20:12 | disposition home or self-care (01) ==
LOC: VM.ED 17:20
DX: J44.1 Chronic obstructive pulmonary disease with (acute) exacerbation (principal); I11.0 Hypertensive heart disease with heart failure; I50.9 Heart failure, unspecified; E78.00 Pure hypercholesterolemia, unspecified; I25.2 Old myocardial infarction; Z88.8 Allergy status to other drugs, medicaments and biological substances; Z79.899 Other long term (current) drug therapy
CPT/HCPCS: 71275; 94640; 96374; 96375; 99284; 99285-25; A9270-GY; J0696; J2930; J7620-GY; Q9967

== ENCOUNTER 2021-04-20 12:22 | Emergency (ER) | payer MEDICARE, OTHER ==
[2021-04-20 12:48] VITALS: BP 141/88; PULSE 90
[2021-04-20] MEDS: Cyclobenzaprine 10 MG Tab PO ONE (12:51)
[2021-04-20] MEDS: Ketorolac 30 MG/ML SDV IM ONE (12:52)
--- NOTE | 2021-04-20 13:38 | EDM.PDOC ---
ED HPI GENERAL MEDICAL PROBLEM - General Chief Complaint: General Stated Complaint: NECK AND SHOULDER PAIN Time Seen by Provider: 04/20/21 12:40 Source of Information: Reports: Patient - History of Present Illness INITIAL COMMENTS - FREE TEXT/NARRATIVE: Anabella alvarez a 81 y/o lady who comes to the ER with pain and tightness in her right arm and shoulder. She denies feeling this way when she woke up, but the pain got worse. She has had some neck and shoulder pain the last 2 days, but it got very sharp this AM and she could not wait to be seen at her clinic visit. She denies any injury or trauma. Is taking Tylenol with little relief. Right Neck Pain Score (Numeric/FACES): 10 - Related Data Allergies Allergy/AdvReac Type Severity Reaction Status Date / Time rosuvastatin calcium AdvReac Muscle Verified 04/20/21 12:43 [From Crestor] Weakness Home Meds: Home Meds Calcium Carbonate/Vitamin D3 [Calcium 600 + Vit D 200] 1 tab PO BID 09/01/15 [History] Ibuprofen 400 tab PO Q6HR PRN 09/01/15 [History] Multivitamin with Minerals [Multiple Vitamin] 1 tab PO DAILY 09/01/15 [History] Simvastatin 20 mg PO DAILY 09/01/15 [History] ALPRAZolam [Xanax] 0.25 mg PO BID PRN 11/19/18 [History] Megestrol [Megace] 40 mg PO DAILY 11/19/18 [History] Primidone [Mysoline] 2 tab PO TID 11/19/18 [History] Fluticasone/Salmeterol [Fluticasone-Salmeterol 113-14 MCG Powder Inh] 1 puff INH BID #1 inhaler 11/21/18 [Rx] Magnesium Oxide 400 mg PO BID #60 tablet 11/21/18 [Rx] Acetaminophen [Tylenol Extra Strength] 500 mg PO Q4HR PRN 02/19/19 [History] Dextran 70/Hypromellose [Artificial Tears] 1 drop OP Q4H PRN 02/19/19 [History] Metoprolol Succinate [Toprol Xl] 100 mg PO DAILY 02/19/19 [History] Valsartan 80 mg PO BID 05/11/19 [History] Albuterol/Ipratropium [DuoNeb 3.0-0.5 MG/3 ML] 3 ml NEB Q6H 05/12/19 [History] Furosemide 20 mg PO DAILY 05/12/19 [History] Sertraline [Zoloft] 12.5 mg PO DAILY 05/12/19 [History] predniSONE 40 mg PO WITHBREAKFAST 5 Days #10 tablet 05/13/19 [Rx] Cyclobenzaprine [Flexeril] 5 mg PO TID PRN #30 tab 04/20/21 [Rx] Past Medical History HEENT History: Reports: Cataract Cardiovascular History: Reports: Heart Failure, High Cholesterol, Hypertension, MS, Pulmonary Hypertension, Other (See Below) Other Cardiovascular History: proxysmal supraventricular tachycardia. valvular heart disease Respiratory History: Reports: COPD, Other (See Below) Other Respiratory History: Chronic airway obstruction. multiple lung nodules Gastrointestinal History: Reports: Chronic Diarrhea, Other (See Below) Other Gastrointestinal History: Diverticulitis. Heme positive stool Musculoskeletal History: Reports: Osteoporosis, Other (See Below) Other Musculoskeletal History: knee injury Neurological History: Reports: Other (See Below) Other Neuro History: Essential tremor Psychiatric History: Reports: Anxiety, Depression Endocrine/Metabolic History: Reports: Osteoporosis, Other (See Below) Other Endocrine/Metabolic History: Weight loss Hematologic History: Reports: None Immunologic History: Reports: None Oncologic (Cancer) History: Reports: None Dermatologic History: Reports: Other (See Below) Other Dermatologic History: Alopecia - Past Surgical History Head Surgeries/Procedures: Reports: None Cardiovascular Surgical History: Reports: Cardiac Ablation Other Cardiovascular Surgeries/Procedures: Intracardiac catheter ablaton antrioventricual node function GI Surgical History: Reports: Hernia, Inguinal Social & Family History - Family History Family Medical History: No Pertinent Family History Cardiac: Reports: MS Neurological: Reports: CVA - Tobacco Use Tobacco Use Status *Q: Never Tobacco User - Caffeine Use Caffeine Use: Reports: Coffee - Alcohol Use Days Per Week of Alcohol Use: 7 Number of Drinks Per Day: 1 Total Drinks Per Week: 7 - Recreational Drug Use Recreational Drug Use: No - Living Situation & Occupation Living situation: Reports: , with Significant Other 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 ROS GENERAL - Review of Systems Review Of Systems: See Below Constitutional: Reports: No Symptoms HEENT: Reports: No Symptoms Respiratory: Reports: No Symptoms Cardiovascular: Reports: No Symptoms Endocrine: Reports: No Symptoms GI/Abdominal: Reports: No Symptoms : Reports: No Symptoms Musculoskeletal: Reports: Neck Pain, Shoulder Pain (right) Skin: Reports: No Symptoms Psychiatric: Reports: No Symptoms Hematologic/Lymphatic: Reports: No Symptoms Immunologic: Reports: No Symptoms ED EXAM, GENERAL - Physical Exam Exam: See Below General Appearance: Alert, WD/WN, No Apparent Distress (Elderly female) Ears: Hearing Grossly Normal Nose: Normal Inspection Throat/Mouth: Normal Voice Head: Atraumatic, Normocephalic Neck: Other (muscle tightness palpated in the upper back/neck region) Respiratory/Chest: No Respiratory Distress, Lungs Clear, Chest Non-Tender Cardiovascular: Normal Peripheral Pulses, Regular Rate, Rhythm GI/Abdominal: Soft (Female) Exam: Deferred Rectal (Female) Exam: Deferred Back Exam: Muscle Spasm (right upperback region) Extremities: Normal Inspection, Normal Range of Motion, Normal Capillary Refill Neurological: Alert, Oriented, CN II-XII Intact, Normal Cognition, Other (note tremor of her head and hands,) Psychiatric: Normal Affect Skin Exam: Warm, Dry, Intact, Normal Color, No Rash Course - Vital Signs Last Recorded V/S: Last Vital Signs Temp 36.2 C 04/20/21 12:25 Pulse 90 04/20/21 12:25 Resp 16 04/20/21 12:25 BP 141/88 H 04/20/21 12:25 Pulse Ox - Orders/Labs/Meds Meds: Medications Discontinued Medications Generic Name Dose Route Start Last Admin Trade Name Freq PRN Reason Stop Dose Admin Cyclobenzaprine HCl 5 mg 04/20/21 12:45 04/20/21 12:51 Cyclobenzaprine 10 Mg Tab PO 04/20/21 12:46 5 mg ONETIME ONE Administration Ketorolac Tromethamine 30 mg 04/20/21 12:45 04/20/21 12:52 Ketorolac 30 Mg/Ml Sdv IM 04/20/21 12:46 30 mg ONETIME ONE Administration Departure - Departure Time of Disposition: 13:36 Disposition: Home, Self-Care 01 Condition: Good Clinical Impression: Muscle spasm - Discharge Information *PRESCRIPTION DRUG MONITORING PROGRAM REVIEWED*: Not Applicable *COPY OF PRESCRIPTION DRUG MONITORING REPORT IN PATIENT DAX: Not Applicable Prescriptions: Cyclobenzaprine [Flexeril] 5 mg PO TID PRN #30 tab PRN Reason: Muscle Spasm - Painful Referrals: Cleo Ford MD [Primary Care Provider] - Additional Instructions: -Continue Tylenol and Ibuprofen as you have been taking -Cyclobenzaprine 5mg oral every 8 hours as needed for muscle spasm #30(Rx) -Ice/heat as needed -Follow up with Dr Ford if symptoms persist or return to the ER Sepsis Event Note (ED) - Evaluation Sepsis Screening Result: No Definite Risk - Focused Exam Vital Signs: Vital Signs Temp Pulse Resp BP 04/20/21 12:25 36.2 C 90 16 141/88 H - Problem List & Annotations (1) Muscle spasm SNOMED Code(s): 10538089 Code(s): M62.838 - OTHER MUSCLE SPASM Status: Acute Current Visit: Yes Annotation/Comment:: Cyclobenzaprine Rx along with OTC APAP/Ibuprofen. - Problem List Review Problem List Initiated/Reviewed/Updated: Yes - Assessment/Plan Plan: -See above
== END 2021-04-20 14:00 | disposition home or self-care (01) ==
LOC: VM.ED 12:22
DX: M62.830 Muscle spasm of back (principal); I11.0 Hypertensive heart disease with heart failure; I50.9 Heart failure, unspecified; E78.00 Pure hypercholesterolemia, unspecified; I25.2 Old myocardial infarction; J44.9 Chronic obstructive pulmonary disease, unspecified; Z88.8 Allergy status to other drugs, medicaments and biological substances; Z79.899 Other long term (current) drug therapy
CPT/HCPCS: 96372; 99283; A9270-GY; J1885

== ENCOUNTER 2021-04-30 08:40 | Emergency (ER) | payer MEDICARE, OTHER ==
[2021-04-30] MEDS ORDERED: HYDROmorphone 1 MG/ML Syringe SUBCUT ONE (08:52)
--- NOTE | 2021-04-30 09:56 | CT ---
[id number] CT/CT Cervical Spine WO IV Exam: CT Cervical Spine WO IV Clinical Data: RADICULOPATHY COMPARISON: CORRELATION IS MADE WITH APRIL 08, 2018 FINDINGS: No fracture or subluxation is seen There are moderate degenerative changes involving C4, C5, C6, and C7. There is foraminal narrowing at these levels The prevertebral soft tissues are unremarkable IMPRESSION: NO FRACTURE OR SUBLUXATION MODERATE DEGENERATIVE CHANGES Jose Mendez MD 04/30/21 0954 Thank you for allowing us to participate in the care of your patient.
[2021-04-30] MEDS ORDERED: Ondansetron 4 MG Tab.DIS PO ONE (10:19)
--- NOTE | 2021-04-30 12:06 | EDM.PDOC ---
ED HPI GENERAL MEDICAL PROBLEM - General Chief Complaint: Upper Extremity Injury/Pain Time Seen by Provider: 04/30/21 08:40 Source of Information: Reports: Patient, Family History Limitations: Reports: No Limitations - History of Present Illness INITIAL COMMENTS - FREE TEXT/NARRATIVE: Pt. presents to ER with complaints of R upper extremity and neck pain. Pt. states that she has been experiencing this for about 3 weeks. She was seen in ER once before for this. She was sent home with cyclobenzaprine. She has not had any imaging. Denies any recent head trauma. No chest pain or shortness of breath. Pt. has a history of tremor which she thinks contributes to her discomfort. She has not done PT. Onset: Today Onset Date: 04/30/21 Location: Reports: Neck, Upper Extremity, Right - Related Data Allergies Allergy/AdvReac Type Severity Reaction Status Date / Time rosuvastatin calcium AdvReac Muscle Verified 04/20/21 12:43 [From Crestor] Weakness Home Meds: Home Meds Calcium Carbonate/Vitamin D3 [Calcium 600 + Vit D 200] 1 tab PO BID 09/01/15 [H istory] Ibuprofen 400 tab PO Q6HR PRN 09/01/15 [History] Multivitamin with Minerals [Multiple Vitamin] 1 tab PO DAILY 09/01/15 [History] Simvastatin 20 mg PO DAILY 09/01/15 [History] ALPRAZolam [Xanax] 0.25 mg PO BID PRN 11/19/18 [History] Megestrol [Megace] 40 mg PO DAILY 11/19/18 [History] Primidone [Mysoline] 2 tab PO TID 11/19/18 [History] Fluticasone/Salmeterol [Fluticasone-Salmeterol 113-14 MCG Powder Inh] 1 puff INH BID #1 inhaler 11/21/18 [Rx] Magnesium Oxide 400 mg PO BID #60 tablet 11/21/18 [Rx] Acetaminophen [Tylenol Extra Strength] 500 mg PO Q4HR PRN 02/19/19 [History] Dextran 70/Hypromellose [Artificial Tears] 1 drop OP Q4H PRN 02/19/19 [History] Metoprolol Succinate [Toprol Xl] 100 mg PO DAILY 02/19/19 [History] Valsartan 80 mg PO BID 05/11/19 [History] Albuterol/Ipratropium [DuoNeb 3.0-0.5 MG/3 ML] 3 ml NEB Q6H 05/12/19 [History] Furosemide 20 mg PO DAILY 05/12/19 [History] Sertraline [Zoloft] 12.5 mg PO DAILY 05/12/19 [History] predniSONE 40 mg PO WITHBREAKFAST 5 Days #10 tablet 05/13/19 [Rx] Cyclobenzaprine [Flexeril] 5 mg PO TID PRN #30 tab 04/20/21 [Rx] Past Medical History HEENT History: Reports: Cataract Cardiovascular History: Reports: Heart Failure, High Cholesterol, Hypertension, [place], Pulmonary Hypertension, Other (See Below) Other Cardiovascular History: proxysmal supraventricular tachycardia. valvular heart disease Respiratory History: Reports: COPD, Other (See Below) Other Respiratory History: Chronic airway obstruction. multiple lung nodules Gastrointestinal History: Reports: Chronic Diarrhea, Other (See Below) Other Gastrointestinal History: Diverticulitis. Heme positive stool Musculoskeletal History: Reports: Osteoporosis, Other (See Below) Other Musculoskeletal History: knee injury Neurological History: Reports: Other (See Below) Other Neuro History: Essential tremor Psychiatric History: Reports: Anxiety, Depression Endocrine/Metabolic History: Reports: Osteoporosis, Other (See Below) Other Endocrine/Metabolic History: Weight loss Hematologic History: Reports: None Immunologic History: Reports: None Oncologic (Cancer) History: Reports: None Dermatologic History: Reports: Other (See Below) Other Dermatologic History: Alopecia - Past Surgical History Head Surgeries/Procedures: Reports: None Cardiovascular Surgical History: Reports: Cardiac Ablation Other Cardiovascular Surgeries/Procedures: Intracardiac catheter ablaton antrioventricual node function GI Surgical History: Reports: Hernia, Inguinal Social & Family History - Family History Family Medical History: No Pertinent Family History Cardiac: Reports: [place] Neurological: Reports: CVA - Caffeine Use Caffeine Use: Reports: Coffee - Living Situation & Occupation Living situation: Reports: , with Significant 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 CMS intact.) ED EXAM, GENERAL - Physical Exam Exam: See Below Exam Limited By: No Limitations General Appearance: Alert, WD/WN, No Apparent Distress Neck: Tender Lateral Extremities: Normal Inspection, Normal Range of Motion, Non-Tender, No Pedal Edema, Normal Capillary Refill Neurological: Alert, Oriented, CN II-XII Intact, Normal Cognition, Normal Gait, Normal Reflexes, No Motor/Sensory Deficits Course - Orders/Labs/Meds Meds: Medications Discontinued Medications Generic Name Dose Route Start Last Admin Trade Name Adam PRN Reason Stop Dose Admin Hydromorphone HCl 1 mg 04/30/21 08:52 04/30/21 09:05 Hydromorphone 1 Mg/Ml Syringe SUBCUT 04/30/21 08:53 1 mg ONETIME ONE Administration Ondansetron HCl 4 mg 04/30/21 10:19 Ondansetron 4 Mg Tab.Dis PO 04/30/21 10:20 ONETIME ONE - Radiology Interpretation Free Text/Narrative:: CT cervical spine negative for acute pathology Departure - Departure Time of Disposition: 11:00 Disposition: Home, Self-Care 01 Clinical Impression: Torticollis - Discharge Information Instructions: Acetaminophen; Hydrocodone tablets or capsules, Acute Tort[place] llis, Adult Referrals: Cleo Ford MD [Primary Care Provider] - Forms: ED Department Discharge Additional Instructions: Home to rest. Lortab 5/325mg 1 every 4-6 hours as needed for pain Continue with cyclobenzaprine. You will be contacted regarding physical therapy Follow-up with Dr. Ford - Problem List Review Problem List Initiated/Reviewed/Updated: Yes - Assessment/Plan Plan: Home to rest. Lortab 5/325mg 1 every 4-6 hours as needed for pain Continue with cyclobenzaprine. You will be contacted regarding physical therapy Follow-up with Dr. Ford
[2021-04-30 23:28] VITALS: BP 126/72; PULSE 72
== END 2021-04-30 10:30 | disposition home or self-care (01) ==
LOC: VM.ED 08:40
DX: M43.6 Torticollis (principal); I11.0 Hypertensive heart disease with heart failure; I50.9 Heart failure, unspecified; E78.00 Pure hypercholesterolemia, unspecified; I25.2 Old myocardial infarction; J44.9 Chronic obstructive pulmonary disease, unspecified; Z88.8 Allergy status to other drugs, medicaments and biological substances; Z79.899 Other long term (current) drug therapy
CPT/HCPCS: 72125; 96372; 99284; A9270; J1170

== ENCOUNTER 2021-05-01 08:49 | Emergency (ER) | payer MEDICARE, OTHER ==
[2021-05-01 10:06] LABS: PTT,PARTIAL THROMBOPLSTIN TIME 38.1 SEC (25.6-32.8)
[2021-05-01 10:29] LABS: CHLORIDE,CL 98 mmol/L (98-107); SODIUM,NA 134 mmol/L (136-145)
[2021-05-01 10:32] LABS: ANION GAP 26.1 mmol/L (5-15)
--- NOTE | 2021-05-01 10:33 | CR ---
[id number] RAD/RAD Chest PA or AP 1V EXAM: SINGLE VIEW CHEST. INDICATION: HYPOTENSION COMPARISON: CORRELATION IS MADE WITH MAY 13, 2019 FINDINGS: The lungs are clear The cardiomediastinal contour is stable IMPRESSION: NO PNEUMONIA OR EDEMA Jose Mendez MD 05/01/21 1032 Thank you for allowing us to participate in the care of your patient.
[2021-05-01] MEDS ORDERED: Calcium Chloride 10% 1 GM/10 ML Syringe IVPUSH ONE (10:39)
[2021-05-01] MEDS ORDERED: Sodium Bicarbonate 8.4% 50 MEQ/50 ML Syringe IVPUSH ONE (10:44)
[2021-05-01] MEDS ORDERED: Albuterol 2.5 MG/0.5 ML UD Neb NEB STA (10:46)
[2021-05-01] MEDS ORDERED: Insulin Regular, Human 100 Units/ML 3 ML Vial IVPUSH ONE (10:54)
[2021-05-01] MEDS ORDERED: 50% Dextrose in Water 50 ML Syringe IVPUSH PRN (10:54)
[2021-05-01] MEDS ORDERED: Glucagon,Human Recombinant 1 MG Vial IM PRN (10:54)
[2021-05-01] MEDS ORDERED: 50% Dextrose in Water 50 ML Syringe IV PRN (10:54)
[2021-05-01] MEDS ORDERED: Sodium Chloride 0.9% 500 ML IV ONE (10:56)
[2021-05-01] MEDS ORDERED: Dextrose 10% in Water 1,000 ML IV SCH (11:00)
[2021-05-01] MEDS ORDERED: Dextrose 5% in Water 500 ML IV SCH (11:00)
--- NOTE | 2021-05-01 11:03 | EDM.PDOC ---
ED HPI GENERAL MEDICAL PROBLEM - General Time Seen by Provider: 05/01/21 09:00 Source of Information: Reports: Patient History Limitations: Reports: No Limitations - History of Present Illness INITIAL COMMENTS - FREE TEXT/NARRATIVE: Pt. presents to ER with complaints of shortness of breath and lightheadedness. Pt. was seen in ER yesterday with 3 week history of R lateral neck pain with radiation into the arm. She states that the discomfort has been worse with movement. CT scan of her neck without contrast was obtained yesterday and was negative for acute pathology. Pt. was started on lortab and sent home. No further workup was performed as patient denies any other acute symptoms. Pt. states that today she developed lightheadedness, shortness of breath, weakness, and fatigue. She complains of tingling in her fingers. She states that her symptoms started on the night last night. EMS was summoned. Pt. was found to be hypotensive with BP in the 50s and 60s systolic. She was given a liter bolus or NS and BP improved. Pt. states that she is chronically short of breath. Denies any current chest pain. She has been having problems with chronic diarrhea, according to her clinic chart. She denies any fever or chills. Kidney function was normal 1 week ago, with creat of 0.88, BUN 12, potassium 4.3. GFR was 75. Onset: Today - Related Data Allergies Allergy/AdvReac Type Severity Reaction Status Date / Time rosuvastatin calcium AdvReac Muscle Verified 04/30/21 23:24 [From Crestor] Weakness Home Meds: Home Meds Calcium Carbonate/Vitamin D3 [Calcium 600 + Vit D 200] 1 tab PO BID 09/01/15 [History] Ibuprofen 400 tab PO Q6HR PRN 09/01/15 [History] Multivitamin with Minerals [Multiple Vitamin] 1 tab PO DAILY 09/01/15 [History] Simvastatin 20 mg PO DAILY 09/01/15 [History] ALPRAZolam [Xanax] 0.25 mg PO BID PRN 11/19/18 [History] Megestrol [Megace] 40 mg PO DAILY 11/19/18 [History] Primidone [Mysoline] 2 tab PO TID 11/19/18 [History] Fluticasone/Salmeterol [Fluticasone-Salmeterol 113-14 MCG Powder Inh] 1 puff INH BID #1 inhaler 11/21/18 [Rx] Magnesium Oxide 400 mg PO BID #60 tablet 11/21/18 [Rx] Acetaminophen [Tylenol Extra Strength] 500 mg PO Q4HR PRN 02/19/19 [History] Dextran 70/Hypromellose [Artificial Tears] 1 drop OP Q4H PRN 02/19/19 [History] Metoprolol Succinate [Toprol Xl] 100 mg PO DAILY 02/19/19 [History] Valsartan 80 mg PO BID 05/11/19 [History] Albuterol/Ipratropium [DuoNeb 3.0-0.5 MG/3 ML] 3 ml NEB Q6H 05/12/19 [History] Furosemide 20 mg PO DAILY 05/12/19 [History] Sertraline [Zoloft] 12.5 mg PO DAILY 05/12/19 [History] predniSONE 40 mg PO WITHBREAKFAST 5 Days #10 tablet 05/13/19 [Rx] Cyclobenzaprine [Flexeril] 5 mg PO TID PRN #30 tab 04/20/21 [Rx] Past Medical History HEENT History: Reports: Cataract Cardiovascular History: Reports: Heart Failure, High Cholesterol, Hypertension, [place], Pulmonary Hypertension, Other (See Below) Other Cardiovascular History: proxysmal supraventricular tachycardia. valvular heart disease Respiratory History: Reports: COPD, Other (See Below) Other Respiratory History: Chronic airway obstruction. multiple lung nodules Gastrointestinal History: Reports: Chronic Diarrhea, Other (See Below) Other Gastrointestinal History: Diverticulitis. Heme positive stool Musculoskeletal History: Reports: Osteoporosis, Other (See Below) Other Musculoskeletal History: knee injury Neurological History: Reports: Other (See Below) Other Neuro History: Essential tremor Psychiatric History: Reports: Anxiety, Depression Endocrine/Metabolic History: Reports: Osteoporosis, Other (See Below) Other Endocrine/Metabolic History: Weight loss Hematologic History: Reports: None Immunologic History: Reports: None Oncologic (Cancer) History: Reports: None Dermatologic History: Reports: Other (See Below) Other Dermatologic History: Alopecia - Past Surgical History Head Surgeries/Procedures: Reports: None Cardiovascular Surgical History: Reports: Cardiac Ablation Other Cardiovascular Surgeries/Procedures: Intracardiac catheter ablaton antrioventricual node function GI Surgical History: Reports: Hernia, Inguinal Social & Family History - Family History Family Medical History: No Pertinent Family History Cardiac: Reports: [place] Neurological: Reports: CVA - Caffeine Use Caffeine Use: Reports: Coffee - Living Situation & Occupation Living situation: Reports: , with Significant 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 Denies: Cough, Sputum Cardiovascular: Reports: Dyspnea on Exertion, Orthopnea Endocrine: Reports: No Symptoms GI/Abdominal: Reports: No Symptoms : Reports: No Symptoms Musculoskeletal: Reports: No Symptoms Skin: Reports: No Symptoms Neurological: Reports: No Symptoms Psychiatric: Reports: No Symptoms Hematologic/Lymphatic: Reports: No Symptoms Immunologic: Reports: No Symptoms ED EXAM, GENERAL - Physical Exam Exam: See Below Exam Limited By: No Limitations General Appearance: Alert, WD/WN, No Apparent Distress Eye Exam: Bilateral Eye: EOMI Throat/Mouth: Normal Inspection, Normal Lips, Normal Teeth, Normal Oropharynx, No Airway Compromise Head: Atraumatic, Normocephalic Neck: Normal Inspection, Supple, Non-Tender, Full Range of Motion Respiratory/Chest: Normal Breath Sounds, Decreased Breath Sounds, Crackles Cardiovascular: Normal Peripheral Pulses, Regular Rate, Rhythm, No JVD GI/Abdominal: Soft, Non-Tender, No Distention, No Mass (Female) Exam: Deferred Rectal (Female) Exam: Deferred Back Exam: Normal Inspection, Full Range of Motion Extremities: Normal Inspection, Normal Range of Motion, Non-Tender, No Pedal Edema, Normal Capillary Refill Neurological: Alert, Oriented, CN II-XII Intact, Normal Cognition, Normal Reflexes, No Motor/Sensory Deficits Skin Exam: Intact, Cool Lymphatic: No Adenopathy #1 Interpretation Rhythm: NSR EKG Interpretation Comments: peaked t waves Course - Orders/Labs/Meds Orders: Active Orders 24 hr Category Date Time Status EKG Documentation Completion [RC] STAT Care 05/01/21 09:07 Active Overnight Pulse Oximetry [RC] Click to Edit Care 05/01/21 09:11 Active COMPREHENSIVE METABOLIC PN,CMP [CHEM] Stat Lab 05/01/21 09:29 Results CRP [C-REACTIVE PROTEIN] [CHEM] Stat Lab 05/01/21 09:29 Results CULTURE BLOOD [BC] Stat Lab 05/01/21 09:29 Received CULTURE BLOOD [BC] Stat Lab 05/01/21 09:37 Received GLUCOSE,POC [POC] Routine Lab 05/01/21 10:38 Received MAGNESIUM [CHEM] Stat Lab 05/01/21 09:29 Results PHOSPHORUS [CHEM] Stat Lab 05/01/21 09:29 Results PRO B-TYPE NATRIUR PEPT,BNPPRO [CHEM] Stat Lab 05/01/21 09:29 Results REFLEX LACTIC ACID YES OR NO [CHEM] Routine Lab 05/01/21 10:19 Received TROPONIN I HIGH SENSITIVITY [CHEM] Stat Lab 05/01/21 09:29 Results UA RFX JULIETH AND CULT IF INDIC [URIN] Stat Lab 05/01/21 09:31 Ordered Dextrose 10% in Water 1,000 ml Med 05/01/21 11:00 Active IV ASDIRECTED Dextrose 50% in Water Med 05/01/21 10:54 Active 50 ml IV ASDIRECTED PRN Dextrose 50% in Water Med 05/01/21 10:54 Active 50 ml IVPUSH ASDIRECTED PRN Glucagon,Human Recombinant [GlucaGen] Med 05/01/21 10:54 Active 1 mg IM ASDIRECTED PRN Sodium Chloride 0.9% [Normal Saline] 500 ml Med 05/01/21 10:56 Active IV ONETIME Blood Culture x2 Reflex Set [OM.PC] Stat Oth 05/01/21 09:11 Ordered Pulse Oximetry Continuous Monitoring [OM.PC] Routine Oth 05/01/21 09:11 Ordered Medication Orders Dextrose/Water (50% Dextrose In Water 50 Ml Syringe) 50 ml IV ASDIRECTED PRN PRN Reason: Hypoglycemia Last Admin: 05/01/21 11:00 Dose: 50 ml Documented by: GERARD Dextrose/Water (50% Dextrose In Water 50 Ml Syringe) 50 ml IVPUSH ASDIRECTED PRN PRN Reason: Hypoglycemia Glucagon (Glucagon,Human Recombinant 1 Mg Vial) 1 mg IM ASDIRECTED PRN PRN Reason: Hypoglycemia Sodium Chloride (Normal Saline) 500 mls @ 500 mls/hr IV ONETIME ONE Stop: 05/01/21 11:55 Dextrose/Water (Dextrose 10% In Water) 1,000 mls @ 100 mls/hr IV ASDIRECTED NOELLE Labs: Laboratory Tests 11/14/21 11/14/21 11/14/21 Range/Units 09:13 09:29 09:29 WBC 11.2 H (4.0-10.0) x10^3/uL RBC 3.38 L (4.00-5.50) x10^6/uL Hgb 10.1 L (12.0-16.0) g/dL Hct 32.1 L (33.0-47.0) % MCV 95.0 H (78.0-93.0) fL MCH 29.9 (26.0-32.0) pg MCHC 31.5 L (32.0-36.0) g/dL RDW Coeff of Vazquez 15.3 H (10.0-15.0) % Plt Count 174 (130-400) x10^3/uL Immature Gran % (Auto) 0.60 H (0.00-0.43) % Neut % (Auto) 76.9 (50.0-80.0) % Lymph % (Auto) 9.9 L (25.0-50.0) % [place] % (Auto) 12.4 H (2.0-11.0) % Eos % (Auto) 0.1 (0.0-4.0) % Baso % (Auto) 0.1 L (0.2-1.2) % Neut # (Auto) 8.6 H (1.8-7.7) x10^3/uL Lymph # (Auto) 1.1 (1.0-4.8) x10^3/uL [place] # (Auto) 1.4 H (0.0-0.8) x10^3/uL Eos # (Auto) 0.0 (0.0-0.5) x10^3/uL Baso # (Auto) 0.0 (0.0-0.2) x10^3/uL Immature Gran # (Auto) 0.07 (0.00-0.07) x10^3/uL PT 61.0 H (9.9-12.5) SEC INR 5.5 H* (2.0-3.5) APTT 38.1 H (25.6-32.8) SEC D-Dimer, Quantitative 2.14 H (<=0.58) mg/LFEU Sodium (136-145) mmol/L Potassium (3.5-5.1) mmol/L Chloride (98-107) mmol/L Carbon Dioxide (21-32) mmol/L Anion Gap (5-15) mmol/L BUN (7-18) mg/dL Creatinine (0.55-1.02) mg/dL Est Cr Clr Drug Dosing Estimated GFR (MDRD) Glucose (70-99) mg/dL Lactic Acid (0.4-2.0) mmol/L Calcium (8.5-10.1) mg/dL Corrected Calcium (8.5-10.1) mg/dL Phosphorus (2.6-4.7) mg/dL Magnesium (1.8-2.4) mg/dL Total Bilirubin (0.2-1.0) mg/dL ALT (14-59) U/L Alkaline Phosphatase (46-116) U/L Troponin I High Sens (<=51) ng/L C-Reactive Protein (<=0.9) mg/dL NT-Pro-B Natriuret Pep (<=450) pg/mL Total Protein (6.4-8.2) g/dL Albumin (3.4-5.0) g/dL Globulin Albumin/Globulin Ratio Procalcitonin (0.1-0.50) ng/mL SARS CoV-2 RNA Rapid DENNIS Negative (NEGATIVE) 05/01/21 05/01/21 05/01/21 Range/Units 09:29 09:29 09:29 WBC (4.0-10.0) x10^3/uL RBC (4.00-5.50) x10^6/uL Hgb (12.0-16.0) g/dL Hct (33.0-47.0) % MCV (78.0-93.0) fL MCH (26.0-32.0) pg MCHC (32.0-36.0) g/dL RDW Coeff of Vazquez (10.0-15.0) % Plt Count (130-400) x10^3/uL Immature Gran % (Auto) (0.00-0.43) % Neut % (Auto) (50.0-80.0) % Lymph % (Auto) (25.0-50.0) % [place] % (Auto) (2.0-11.0) % Eos % (Auto) (0.0-4.0) % Baso % (Auto) (0.2-1.2) % Neut # (Auto) (1.8-7.7) x10^3/uL Lymph # (Auto) (1.0-4.8) x10^3/uL [place] # (Auto) (0.0-0.8) x10^3/uL Eos # (Auto) (0.0-0.5) x10^3/uL Baso # (Auto) (0.0-0.2) x10^3/uL Immature Gran # (Auto) (0.00-0.07) x10^3/uL PT (9.9-12.5) SEC INR (2.0-3.5) APTT (25.6-32.8) SEC D-Dimer, Quantitative (<=0.58) mg/LFEU Sodium 134 L (136-145) mmol/L Potassium 7.1 H* (3.5-5.1) mmol/L Chloride 98 (98-107) mmol/L Carbon Dioxide 17 L D (21-32) mmol/L Anion Gap 26.1 H (5-15) mmol/L BUN 43 H (7-18) mg/dL Creatinine 3.2 H* D (0.55-1.02) mg/dL Est Cr Clr Drug Dosing TNP Estimated GFR (MDRD) 14 Glucose 30 L* (70-99) mg/dL Lactic Acid 9.0 H* (0.4-2.0) mmol/L Calcium 8.1 L (8.5-10.1) mg/dL Corrected Calcium 9.1 (8.5-10.1) mg/dL Phosphorus 9.1 H (2.6-4.7) mg/dL Magnesium 2.2 (1.8-2.4) mg/dL Total Bilirubin 1.0 (0.2-1.0) mg/dL ALT 737 H (14-59) U/L Alkaline Phosphatase 165 H (46-116) U/L Troponin I High Sens 61 H* (<=51) ng/L C-Reactive Protein 4.7 H (<=0.9) mg/dL NT-Pro-B Natriuret Pep 6723 H (<=450) pg/mL Total Protein 6.0 L (6.4-8.2) g/dL Albumin 2.8 L (3.4-5.0) g/dL Globulin 3.2 Albumin/Globulin Ratio 0.88 Procalcitonin 0.70 H (0.1-0.50) ng/mL SARS CoV-2 RNA Rapid DENNIS (NEGATIVE) Meds: Medications Generic Name Dose Route Start Last Admin Trade Name Freq PRN Reason Stop Dose Admin Dextrose/Water 50 ml 05/01/21 10:54 05/01/21 11:00 50% Dextrose In Water 50 Ml Syringe IV 50 ml ASDIRECTED PRN Administration Hypoglycemia Dextrose/Water 50 ml 05/01/21 10:54 50% Dextrose In Water 50 Ml Syringe IVPUSH ASDIRECTED PRN Hypoglycemia Glucagon 1 mg 05/01/21 10:54 Glucagon,Human Recombinant 1 Mg Vial IM ASDIRECTED PRN Hypoglycemia Sodium Chloride 500 mls @ 500 mls/hr 05/01/21 10:56 Normal Saline IV 05/01/21 11:55 ONETIME ONE Dextrose/Water 1,000 mls @ 100 mls/hr 05/01/21 11:00 Dextrose 10% In Water IV ASDIRECTED NOELLE Discontinued Medications Generic Name Dose Route Start Last Admin Trade Name Freq PRN Reason Stop Dose Admin Albuterol 10 mg 05/01/21 10:46 05/01/21 10:54 Albuterol 2.5 Mg/0.5 Ml Ud Neb NEB 05/01/21 10:47 10 mg STAT STA Administration Calcium Chloride 1 gm 05/01/21 10:39 05/01/21 10:44 Calcium Chloride 10% 1 Gm/10 Ml Syringe IVPUSH 05/01/21 10:40 1 gm ONETIME ONE Administration Furosemide 80 mg 05/01/21 11:13 Furosemide 40 Mg/4 Ml Vial IV 05/01/21 11:14 ONETIME ONE Furosemide Confirm 05/01/21 11:15 Furosemide 40 Mg/4 Ml Vial Administered 05/01/21 11:16 Dose 80 mg .ROUTE .STK-MED ONE Insulin Human Regular 10 unit 05/01/21 10:54 05/01/21 11:00 Insulin Regular, Human 100 Units/Ml 3 Ml Vial IVPUSH 05/01/21 10:55 10 unit ONETIME ONE Administration Sodium Bicarbonate 50 meq 05/01/21 10:44 05/01/21 10:54 Sodium Bicarbonate 8.4% 50 Meq/50 Ml Syringe IVPUSH 05/01/21 10:45 50 meq ONETIME ONE Administration - Radiology Interpretation Free Text/Narrative:: pulmonary edema noted on chest x-ray - Re-Assessments/Exams Free Text/Narrative Re-Assessment/Exam: On obtaining labs, pt. was given calcium chloride 1 gm IV, an amp of sodium bicarb, insulin 10mg IV, D50 am IV. She was given 10 mg of nebulized albuterol. She was given lasix 80mg IV. Departure - Departure Time of Disposition: : Disposition: Home, Self-Care Clinical Impression: Acute renal failure - Discharge Information Referrals: Cleo Ford MD [Primary Care Provider] - Forms: Interfacility Transfer EMTALA - Problem List Review Problem List Initiated/Reviewed/Updated: Yes - My Orders Last 24 Hours: My Active Orders 05/01/21 09:07 EKG Documentation Completion [RC] STAT 05/01/21 09:11 Overnight Pulse Oximetry [RC] Click to Edit Blood Culture x2 Reflex Set [OM.PC] Stat Pulse Oximetry Continuous Monitoring [OM.PC] Routine 05/01/21 09:29 COMPREHENSIVE METABOLIC PN,CMP [CHEM] Stat CRP [C-REACTIVE PROTEIN] [CHEM] Stat CULTURE BLOOD [BC] Stat MAGNESIUM [CHEM] Stat PHOSPHORUS [CHEM] Stat PRO B-TYPE NATRIUR PEPT,BNPPRO [CHEM] Stat TROPONIN I HIGH SENSITIVITY [CHEM] Stat 05/01/21 09:31 UA RFX JULIETH AND CULT IF INDIC [URIN] Stat 05/01/21 09:37 CULTURE BLOOD [BC] Stat 05/01/21 10:19 REFLEX LACTIC ACID YES OR NO [CHEM] Routine 05/01/21 10:38 GLUCOSE,POC [POC] Routine 05/01/21 10:54 Dextrose 50% in Water 50 ml IV ASDIRECTED PRN Dextrose 50% in Water 50 ml IVPUSH ASDIRECTED PRN Glucagon,Human Recombinant [GlucaGen] 1 mg IM ASDIRECTED PRN 05/01/21 10:56 Sodium Chloride 0.9% [Normal Saline] 500 ml IV ONETIME 05/01/21 11:00 Dextrose 10% in Water 1,000 ml IV ASDIRECTED - Assessment/Plan Last 24 Hours: My Active Orders 05/01/21 09:07 EKG Documentation Completion [RC] STAT 05/01/21 09:11 Overnight Pulse Oximetry [RC] Click to Edit Blood Culture x2 Reflex Set [OM.PC] Stat Pulse Oximetry Continuous Monitoring [OM.PC] Routine 05/01/21 09:29 COMPREHENSIVE METABOLIC PN,CMP [CHEM] Stat CRP [C-REACTIVE PROTEIN] [CHEM] Stat CULTURE BLOOD [BC] Stat MAGNESIUM [CHEM] Stat PHOSPHORUS [CHEM] Stat PRO B-TYPE NATRIUR PEPT,BNPPRO [CHEM] Stat TROPONIN I HIGH SENSITIVITY [CHEM] Stat 05/01/21 09:31 UA RFX JULIETH AND CULT IF INDIC [URIN] Stat 05/01/21 09:37 CULTURE BLOOD [BC] Stat 05/01/21 10:19 REFLEX LACTIC ACID YES OR NO [CHEM] Routine 05/01/21 10:38 GLUCOSE,POC [POC] Routine 05/01/21 10:54 Dextrose 50% in Water 50 ml IV ASDIRECTED PRN Dextrose 50% in Water 50 ml IVPUSH ASDIRECTED PRN Glucagon,Human Recombinant [GlucaGen] 1 mg IM ASDIRECTED PRN 05/01/21 10:56 Sodium Chloride 0.9% [Normal Saline] 500 ml IV ONETIME 05/01/21 11:00 Dextrose 10% in Water 1,000 ml IV ASDIRECTED Plan: Pt. will be transferred to [facility]. She will be transported via [facility] ground ambulance. Dr. Pierre is accepting. Pt. is a code 1.
[2021-05-01] MEDS ORDERED: Furosemide 40 MG/4 ML VIAL IV ONE (11:13)
[2021-05-01] MEDS ORDERED: Furosemide 40 MG/4 ML VIAL ONE (11:15)
[2021-05-01 14:21] VITALS: BP 94/53; PULSE 64
== END 2021-05-01 11:50 | disposition short-term general hospital (02) ==
LOC: VM.ED 08:49
DX: N17.9 Acute kidney failure, unspecified (principal); I11.0 Hypertensive heart disease with heart failure; I50.9 Heart failure, unspecified; J44.9 Chronic obstructive pulmonary disease, unspecified; I25.2 Old myocardial infarction; Z20.822 Contact with and (suspected) exposure to COVID-19; Z88.8 Allergy status to other drugs, medicaments and biological substances; Z79.899 Other long term (current) drug therapy
CPT/HCPCS: 36415; 51702; 71045; 80053; 81001; 82947; 83605; 83735; 83880; 84100; 84145; 84484; 85025; 85379; 85610; 85730; 86140; 87040; 93005; 94640; 96374; 96375; 99285; J1815; J1940; J7060; U0002; 99284; J7611